=== PATIENT | male | born 1955 ===

== ENCOUNTER 2021-07-07 12:05 | Outpatient (REF) | payer MEDICARE, SELFPAY ==
[2021-07-07 13:42] LABS: Appearance Urine CLEAR; Color Urine YELLOW; Glucose Urine UA NEG (NEG); Leukocyte Esterase Urine NEG (NEG); Nitrite Urine NEG (NEG); PH 5.5 (5.0-8.0); Specific Gravity - Urine >= 1.030 (1.005-1.025); Urine Blood NEG (NEG); Urine Ketones NEG (NEG); Urine Protein NEG (NEG-TRACE)
[2021-07-07 13:45] LABS: Hematocrit 43.7 % (42.0-52.0); Hemoglobin 14.4 g/dl (14.0-18.0); Mean Corpuscular Hemoglobin 30.5 pg (27.0-33.0); Mean Corpuscular Volume 92.6 fL (80.0-98.0); Mean Platelet Volume 11.1 fL (9.4-12.4); Platelet Count 175 X10*3/uL (160-400); Red Blood Count 4.72 X10*6/uL (4.60-5.80); Red Cell Distribution Width 13.2 % (11.0-16.0)
[2021-07-07 13:55] LABS: RBC Urine 0 /HPF (0); Squamous Epithelial Cell Urine 1+ /LPF; WBC Urine 0-2 /HPF (0-4)
[2021-07-07 14:01] LABS: Alanine Aminotransferase 32 U/L (0-40); Albumin Level 4.4 g/dL (3.5-5.0); Alkaline Phosphatase 60 U/L (39-117); Anion Gap 11 (12-20); Aspartate Amino Transferase 25 U/L (5-37); Bilirubin Total 0.6 mg/dL (0.0-1.0); Blood Urea Nitrogen 11 mg/dL (9-16); Calcium 9.5 mg/dL (8.4-10.2); Carbon Dioxide 27 mmol/L (22-29); Chloride 105 mmol/L (96-108); Cholesterol 210 mg/dL; Estimated Glomerular Filt Rate > 60; Glucose Fasting 93 mg/dL (60-99); HDL Cholesterol 41 mg/dL; LDL Cholesterol Calculated 135 mg/dl; Potassium 4.4 mmol/L (3.3-5.1); Sodium 139 mmol/L (135-145); Total Protein 7.3 g/dL (6.5-8.0); Triglycerides 172 mg/dL
[2021-07-07 14:20] LABS: TSH reflex Free T4 1.41 uIU/mL (0.32-4.0)
== END 2021-07-07 12:06 | disposition home or self-care (01) ==
LOC: HO.HMGCLDS 12:05
PROVIDERS: PCP Internal Medicine; Visit Provider Internal Medicine
DX: E66.3 Overweight (principal); E78.5 Hyperlipidemia, unspecified; N40.0 Benign prostatic hyperplasia without lower urinary tract symptoms
CPT/HCPCS: 36415; 80053; 80061; 81001; 84443; 85027

== ENCOUNTER 2021-08-19 13:13 | Outpatient (REF) | payer MEDICARE, SELFPAY ==
[2021-08-19 14:24] LABS: Anion Gap 12 (12-20); Blood Urea Nitrogen 12 mg/dL (9-16); Calcium 9.6 mg/dL (8.4-10.2); Carbon Dioxide 27 mmol/L (22-29); Chloride 106 mmol/L (96-108); Cholesterol 194 mg/dL; Estimated Glomerular Filt Rate > 60; Glucose Random 90 mg/dL (60-115); HDL Cholesterol 36 mg/dL; LDL Cholesterol Calculated 96 mg/dl; Potassium 4.5 mmol/L (3.3-5.1); Sodium 140 mmol/L (135-145); Triglycerides 314 mg/dL
== END 2021-08-19 13:14 | disposition home or self-care (01) ==
LOC: HO.HMGCLDS 13:13
PROVIDERS: Visit Provider Internal Medicine
DX: I10 Essential (primary) hypertension (principal); E78.5 Hyperlipidemia, unspecified
CPT/HCPCS: 36415; 80048; 80061

== ENCOUNTER 2021-12-20 13:29 | Outpatient (REF) | payer MEDICARE, SELFPAY ==
[2021-12-20 16:49] LABS: Alanine Aminotransferase 29 U/L (0-40); Albumin Level 4.4 g/dL (3.5-5.0); Alkaline Phosphatase 65 U/L (39-117); Anion Gap 15 (12-20); Aspartate Amino Transferase 26 U/L (5-37); Bilirubin Total 0.8 mg/dL (0.0-1.0); Blood Urea Nitrogen 16 mg/dL (9-16); Calcium 8.8 mg/dL (8.4-10.2); Carbon Dioxide 28 mmol/L (22-29); Chloride 101 mmol/L (96-108); Estimated Glomerular Filt Rate > 60; Glucose Fasting 92 mg/dL (60-99); Potassium 4.6 mmol/L (3.3-5.1); Sodium 139 mmol/L (135-145); Total Protein 7.4 g/dL (6.5-8.0)
== END 2021-12-20 13:30 | disposition home or self-care (01) ==
LOC: HO.HMGCLDS 13:29
PROVIDERS: PCP Internal Medicine; Visit Provider Internal Medicine
DX: E78.5 Hyperlipidemia, unspecified (principal); I10 Essential (primary) hypertension
CPT/HCPCS: 36415; 80053

== ENCOUNTER 2022-06-09 09:30 | Outpatient (REF) | payer MEDICARE, SELFPAY ==
[2022-06-09 11:55] LABS: Alanine Aminotransferase 33 U/L (0-40); Albumin Level 4.3 g/dL (3.5-5.0); Alkaline Phosphatase 53 U/L (39-117); Anion Gap 14 (12-20); Aspartate Amino Transferase 27 U/L (5-37); Bilirubin Total 0.9 mg/dL (0.0-1.0); Blood Urea Nitrogen 12 mg/dL (9-16); Carbon Dioxide 26 mmol/L (22-29); Chloride 104 mmol/L (96-108); Cholesterol 164 mg/dL; Estimated Glomerular Filt Rate > 60; Glucose Fasting 98 mg/dL (60-99); HDL Cholesterol 38 mg/dL; LDL Cholesterol Calculated 108 mg/dl; Potassium 4.6 mmol/L (3.3-5.1); Sodium 139 mmol/L (135-145); Total Protein 6.9 g/dL (6.5-8.0); Triglycerides 93 mg/dL
[2022-06-09 12:04] LABS: Estimated Average Glucose 114 mg/dL; Hemoglobin A1c % 5.6 %
== END 2022-06-09 09:31 | disposition home or self-care (01) ==
LOC: HO.HMGCLDS 09:30
PROVIDERS: PCP Internal Medicine; Visit Provider Internal Medicine
DX: Z00.00 Encounter for general adult medical examination without abnormal findings (principal); I10 Essential (primary) hypertension; E78.5 Hyperlipidemia, unspecified
CPT/HCPCS: 36415; 80053; 80061; 83036

== ENCOUNTER 2022-06-10 15:01 | Outpatient (REF) | payer MEDICARE, SELFPAY ==
[2022-06-14 03:05] LABS: Lyme Abs Screen <0.90 index
== END 2022-06-10 15:02 | disposition home or self-care (01) ==
LOC: HO.HMGCLDS 15:01
PROVIDERS: Visit Provider Internal Medicine
DX: T14.8XXA Other injury of unspecified body region, initial encounter (principal); W57.XXXA Bitten or stung by nonvenomous insect and other nonvenomous arthropods, initial encounter; Y93.9 Activity, unspecified; Y92.9 Unspecified place or not applicable; Y99.9 Unspecified external cause status
CPT/HCPCS: 36415; 86617; 86618

== ENCOUNTER 2022-12-14 11:06 | Outpatient (REF) | payer MEDICARE, SELFPAY ==
[2022-12-14 13:17] LABS: MANUAL DIFF FLAG NO
[2022-12-14 13:33] LABS: Estimated Average Glucose 105 mg/dL; Hemoglobin A1c % 5.3 % (<6.0)
[2022-12-14 13:38] LABS: Eosinophils Absolute Auto 0.1 X10*3/uL (0.0-0.4); Eosinophils Percent Auto 1.3 % (0-4); Hematocrit 42.6 % (42.0-52.0); Hemoglobin 14.4 g/dl (14.0-18.0); Imm Gran Abs Auto 0.02 X10*3/uL (0.00-0.03); Imm Gran Pct Auto 0.5 % (0.0-0.4); Lymphocytes Percent Auto 25.5 % (20-40); Mean Corpuscular HGB Conc 33.8 g/dl (31.0-36.0); Mean Corpuscular Hemoglobin 31.4 pg (27.0-33.0); Monocytes Absolute Auto 0.4 X10*3/uL (0.1-1.2); Monocytes Percent Auto 9.1 % (2-11); Neutrophils Absolute Auto 2.4 x10*3/uL (2.0-8.3); Neutrophils Percent Auto 62.6 % (45-73); Platelet Count 189 X10*3/uL (160-400); Red Blood Count 4.58 X10*6/uL (4.60-5.80); Red Cell Distribution Width 13.1 % (11.0-16.0); White Blood Count 3.8 X10*3/uL (4.8-10.8)
[2022-12-14 13:46] LABS: Alanine Aminotransferase 16 U/L (0-40); Albumin Level 4.4 g/dL (3.5-5.0); Alkaline Phosphatase 62 U/L (39-117); Anion Gap 12 (12-20); Aspartate Amino Transferase 20 U/L (5-37); Bilirubin Total 0.8 mg/dL (0.0-1.0); Blood Urea Nitrogen 14 mg/dL (9-16); Calcium 9.7 mg/dL (8.4-10.2); Carbon Dioxide 26 mmol/L (22-29); Chloride 107 mmol/L (96-108); Cholesterol 207 mg/dL (<200); Estimated Glomerular Filt Rate > 60; Glucose Fasting 98 mg/dL (60-99); HDL Cholesterol 45 mg/dL (>40); LDL Cholesterol Calculated 141 mg/dL (<100); Potassium 4.3 mmol/L (3.3-5.1); Sodium 141 mmol/L (135-145); Total Protein 7.4 g/dL (6.5-8.0); Triglycerides 107 mg/dL (<150)
== END 2022-12-14 11:07 | disposition home or self-care (01) ==
LOC: HO.HMGCLDS 11:06
PROVIDERS: PCP Internal Medicine; Visit Provider Internal Medicine
DX: Z00.00 Encounter for general adult medical examination without abnormal findings (principal); E78.5 Hyperlipidemia, unspecified; I10 Essential (primary) hypertension
CPT/HCPCS: 36415; 80053; 80061; 83036; 85025

== ENCOUNTER 2022-12-21 09:47 | Outpatient (AMB) | payer MEDICARE, SELFPAY ==
--- NOTE | 2022-12-21 09:50 | A.OFFPC_ITS ---
Vital Signs 12/21/22 09:52 Height 5 ft 11 in Weight 242 lb BMI 33.7 BP 122/66 Blood Pressure Location Lt brachial Position Sitting Pulse 64 Pulse Source Pulse Oximeter Pulse Oximetry (%) 98 Oxygen Delivery Method Room Air Intake Visit Reasons: 6m follow up HTN Intake Note: Pt is here today for 6 months follow up visit on HTN. Allergies meperidine [From Demerol] Allergy (Verified 12/21/22 09:54) it took a while to recover from it to wake up Medication List - Last Reconciled 12/21/22 by Maida Belcher MD apple cider vinegar 480 mg PO DAILY ascorbic acid (vitamin C) mg PO B gwqobtx-K-gsvzv acid-Zn 500-400-15 mg-mcg-mg tabs PO DAILY cholecalciferol (vitamin D3) 50 mcg PO DAILY dextrin (Clear Fiber) 2 tsp PO DAILY magnesium 500 mg PO DAILY melatonin 3 mg PO BEDTIME PRN olmesartan 20 mg PO DAILY selenium 200 mcg PO .every other day turmeric root extract 1,000 mg PO DAILY zinc 50 mg PO DAILY Tobacco use date assessed: 12/21/22 Dental Screening Dental Screen Date: 12/21/22 Did you have a dental visit in the last 12 months?: Yes Did you have a dental problem in the last 6 months where you did not have access to dental care?: No Was dental information given to patient?: Patient has dentist HPI 6m follow up HTN HPI Details Pt presents for f/u HTN, stable on Olmesartan. Pt was dxd with low grade prostate ca and f/u [facility] urology for watchful waiting. [facility] Medical History (Updated 12/21/22 @ 11:16 by Maida Belcher MD) Hyperlipidemia Annual physical exam HTN (hypertension) BPH (benign prostatic hyperplasia) Overweight Surgical History (Updated 12/21/22 @ 10:48 by Maida Belcher MD) H/O colonoscopy Family History Mother AD (Alzheimer's disease) Hypertension Father Colorectal cancer Prostate cancer Social History Household Members Other:: , bookeeping business, Housing: House Patient Tobacco Use Status: Former Tobacco user ( ) e-Cigarette/Vaping Use: Never Used Current occupational status: employed Cognitive needs: No Hearing needs: No Vision needs: Yes Questionnaire PHQ-9 Over the last 2 weeks, how often have you been bothered by any of the following problems? 1. Little interest or pleasure in doing things: not at all 2. Feeling down, depressed, or hopeless: not at all 3. Trouble falling or staying asleep, or sleeping too much: not at all 4. Feeling tired or having little energy: nearly every day 5. Poor appetite or overeating: not at all 6. Feeling bad about yourself - or that you are a failure or have let yourself or your family down: not at all 7. Trouble concentrating on things, such as reading the newspaper or watching television: not at all 8. Moving or speaking so slowly that other people could have noticed. Or the opposite - being so fidgety or restless that you have been moving around a lot more than usual: not at all 9. Thoughts that you would be better off or of hurting yourself in some way: not at all Total score: 3 Depression Screening Interpretation: Negative Source: Developed by Drs. Mani Rosario, Rosana Bowman, Guru Veras and colleagues, with an educational gucci from [employer]. Thrive Questionnaire Date Thrive assessed: 12/21/22 I am a: Patient What is your living situation today?: I have a steady place to live Within the past 12 months, did the food you bought not last and you didn't have the money to get more?: Never true Within the past 12 months, did you worry whether your food would run out before you got money to buy more?: Never true Do you have trouble paying for medicines?: No Do you have trouble getting transportation to medical appointments?: No Do you have trouble paying your heating and electricity bill?: No Do you have trouble taking care of your child, family member or friend?: No Do you have trouble with day-to-day activities such as bathing, preparing meals, shopping, managing finances, etc.?: No Are you currently unemployed and looking for a job?: No Are you interested in more education?: No Please select the resources that you would like help with: None Currently or been in a relationship where the following occur: no concerns reported JUAN-7 AMB Questionnaire JUAN-7 Date JUAN - 7 assessed: 12/21/22 Feeling nervous, anxious, or on edge: 0 = Not at all Not being able to stop or control worryin = Not at all Worrying too much about different things: 0 = Not at all Trouble relaxin = Not at all Being so restless that it is hard to sit still: 0 = Not at all Becoming easily annoyed or irritable: 0 = Not at all Feeling afraid as if something awful might happen: 0 = Not at all Total JUAN-7 score (0-4 normal; 5-9 mild; 10-14 moderate; 15-21 severe): 0 Source: Developed by Drs. Mani Rosario, Rosana Bowman, Guru Veras and colleagues, with an educational gucci from [employer]. Review of Systems Const All systems reviewed & are unremarkable except as noted in HPI and below Reports no additional complaints Eyes Reports no additional complaints ENT Reports no additional complaints Card Reports no additional complaints Resp Reports no additional complaints GI Reports no additional complaints Reports no additional complaints Physical exam (Primary Care) Vital Signs: Last Vital Signs Pulse 64 12/21/22 09:52 BP 122/66 12/21/22 09:52 Pulse Ox 98 12/21/22 09:52 Oxygen Delivery Method Room Air 12/21/22 09:52 BMI result Body Mass Index 33.7 Tobacco/Smoking Status: Tobacco use Status Tobacco use date assessed 12/21/22 12/21/22 09:57 Patient Tobacco Use Status Former Tobacco user ( ) 12/21/22 09:51 e-Cigarette/Vaping Use Never Used 12/21/22 09:51 PHQ-9: PHQ-9 Score PHQ-9: Total score 3 12/21/22 10:47 Depression Screening Interpretation: Negative Thrive Assessment: Date of Thrive Assessment Date Thrive assessed 12/21/22 12/21/22 09:57 Currently or been in a relationship where the following occur: no concerns reported Const General: no acute distress HENMT Head: Yes normal to inspection Ears: hearing grossly normal bilaterally Face and sinus: Yes normal facial exam Mouth: Normal oral and palatal mucosa present Throat: Yes posterior oropharynx normal Eyes General: appearance normal, both eyes and all related structures Neck Neck: Yes no lymphadenopathy and Yes supple Resp Effort & Inspection: normal respiratory effort Auscultation: clear to auscultation bilaterally Cardio Rhythm: regular rhythm Heart sounds: S1 normal heart sound present and S2 normal heart sound present GI Inspection: Yes normal to inspection Palpation (GI): Soft to palpation Percussion: Yes normal to percussion Auscultation: normal bowel sounds Assessment and Plan Assessment & Plan (1) Annual physical exam: Code(s): Z00.00 - Encounter for general adult medical examination without abnormal findings Plan: A WELL BALANCED DIET REGULAR EXERCISE AND WEIGHT LOSS DISCUSSED WITH THE PATIENT. (2) HTN (hypertension): Code(s): I10 - Essential (primary) hypertension Plan: Continue olmesartan (3) Prostate cancer: Comment: low grade, f/u [facility] [place] , WATCHFUL WAITING Code(s): C61 - Malignant neoplasm of prostate Plan: Follow-up with urology (4) Hyperlipidemia: Code(s): E78.5 - Hyperlipidemia, unspecified Plan: Low-cholesterol diet including avoiding red meat and coconut oil discussed with the patient recheck lipid profile in 3 months Orders: Orders Vitamin B12 Today I10 - Essential (primary) hypertension, Z00.00 - Encounter for general adult medical examination without abnormal findings IRON PROFILE Today I10 - Essential (primary) hypertension, Z00.00 - Encounter for general adult medical examination without abnormal findings Complete Blood Count Auto Diff 3 Months E78.5 - Hyperlipidemia, unspecified, Z00.00 - Encounter for general adult medical examination without abnormal findings Lipid Panel 3 Months E78.5 - Hyperlipidemia, unspecified, Z00.00 - Encounter for general adult medical examination without abnormal findings Coding Level of Care Code Est Pt Level 4 (10658) Diagnoses Annual physical exam Z00.00 HTN (hypertension) I10 Prostate cancer C61 Hyperlipidemia E78.5
[2022-12-21 09:52] VITALS: BP 122/66; PULSE 64; O2SAT 98; BMI 33.7
== END 2022-12-21 11:17 | disposition home or self-care (01) ==
PROVIDERS: Visit Provider Internal Medicine
DX: I10 Essential (primary) hypertension (principal); C61 Malignant neoplasm of prostate; E78.5 Hyperlipidemia, unspecified
CPT/HCPCS: 99214

== ENCOUNTER 2022-12-21 10:51 | Outpatient (REF) | payer MEDICARE, SELFPAY ==
[2022-12-21 13:39] LABS: Iron 139 mcg/dL (45-160); Percent Iron Saturation 48 % (15-50); Total Iron Binding Capacity 289 mcg/dL (228-428); Unsaturated Iron Binding 150 ug/dL
[2022-12-21 14:07] LABS: Vitamin B12 446 pg/mL (200-900)
== END 2022-12-21 10:52 | disposition home or self-care (01) ==
LOC: HO.HMGCLDS 10:51
PROVIDERS: PCP Internal Medicine; Visit Provider Internal Medicine
DX: Z00.00 Encounter for general adult medical examination without abnormal findings (principal); I10 Essential (primary) hypertension
CPT/HCPCS: 36415; 82607; 83540

== ENCOUNTER 2023-05-05 09:52 | Outpatient (AMB) | payer MEDICARE, SELFPAY ==
--- NOTE | 2023-05-05 09:54 | A.OFFPC_ITS ---
Vital Signs 05/05/23 09:56 Height 5 ft 11 in Weight 244 lb BMI 34.0 BP 128/70 Blood Pressure Location Lt brachial Position Sitting Pulse 76 Pulse Source Pulse Oximeter Pulse Oximetry (%) 98 Oxygen Delivery Method Room Air Intake Visit Reasons: Follow up discuss referral ENT? Intake Note: Pt is here today for a folow up visit to discuss referral to ENT. Allergies meperidine [From Demerol] Allergy (Verified 05/05/23 09:58) it took a while to recover from it to wake up Medication List - Last Reconciled 05/05/23 by Maida Belcher MD apple cider vinegar 480 mg PO DAILY ascorbic acid (vitamin C) mg PO B igbmxrs-A-yfumu acid-Zn 500-400-15 mg-mcg-mg tabs PO DAILY cholecalciferol (vitamin D3) 50 mcg PO DAILY dextrin (Clear Fiber) 2 tsp PO DAILY magnesium 500 mg PO DAILY melatonin 3 mg PO BEDTIME PRN olmesartan 20 mg PO DAILY selenium 200 mcg PO .every other day turmeric root extract 1,000 mg PO DAILY zinc 50 mg PO DAILY Tobacco use date assessed: 05/05/23 Fall risk assessment: 2 + Falls in past year Last assessed Fall Risk: 05/05/23 Dental Screening Dental Screen Date: 05/05/23 Did you have a dental visit in the last 12 months?: Yes Did you have a dental problem in the last 6 months where you did not have access to dental care?: No Was dental information given to patient?: Patient has dentist HPI Follow up discuss referral ENT? HPI Details Patient presents with a concern of right submandibular mass felt by dental hygienist during his routine cleaning. Patient denies tooth infection, sore throat earache fever chills. [facility] Medical History (Updated 05/05/23 @ 10:53 by Maida Belcher MD) Hyperlipidemia Annual physical exam HTN (hypertension) BPH (benign prostatic hyperplasia) Overweight Surgical History (Updated 12/21/22 @ 10:48 by Maida Belcher MD) H/O colonoscopy Family History Mother AD (Alzheimer's disease) Hypertension Father Colorectal cancer Prostate cancer Social History Household Members Other:: , bookeeping business, Housing: House Patient Tobacco Use Status: Former Tobacco user ( ) e-Cigarette/Vaping Use: Never Used Current occupational status: employed Cognitive needs: No Hearing needs: No Vision needs: Yes Questionnaire Thrive Questionnaire Date Thrive assessed: 12/21/22 AUDIT C Alcohol Use Questionnaire (AUDIT-C) 1. How often do you have a drink containing alcohol?: Never 3. How often do you have six or more drinks on one occasion?: Never Total Score: 0 JUAN-7 AMB Questionnaire JUAN-7 Date JUAN - 7 assessed: 12/21/22 Feeling nervous, anxious, or on edge: 1 = Several days Not being able to stop or control worryin = Not at all Worrying too much about different things: 1 = Several days Trouble relaxin = Several days Being so restless that it is hard to sit still: 0 = Not at all Becoming easily annoyed or irritable: 0 = Not at all Feeling afraid as if something awful might happen: 1 = Several days Total JUAN-7 score (0-4 normal; 5-9 mild; 10-14 moderate; 15-21 severe): 4 Source: Developed by Drs. Mani Rosario, Rosana Bowman, Guru Veras and colleagues, with an educational gucci from [employer]. Review of Systems Const All systems reviewed & are unremarkable except as noted in HPI and below Reports no additional complaints Eyes Reports no additional complaints ENT Reports no additional complaints Card Reports no additional complaints Resp Reports no additional complaints GI Reports no additional complaints Reports no additional complaints Physical exam (Primary Care) Vital Signs: Last Vital Signs Pulse 76 05/05/23 09:56 BP 128/70 05/05/23 09:56 Pulse Ox 98 05/05/23 09:56 Oxygen Delivery Method Room Air 05/05/23 09:56 BMI result Body Mass Index 34.0 Tobacco/Smoking Status: Tobacco use Status Tobacco use date assessed 05/05/23 05/05/23 10:01 Patient Tobacco Use Status Former Tobacco user ( ) 05/05/23 09:54 e-Cigarette/Vaping Use Never Used 05/05/23 09:54 Thrive Assessment: Date of Thrive Assessment Date Thrive assessed 12/21/22 05/05/23 09:54 Const General: no acute distress HENMT Head: Yes normal to inspection Ears: hearing grossly normal bilaterally and TM's normal bilaterally Face and sinus: Yes normal facial exam Throat: Yes posterior oropharynx normal Neck Other: Right submandibular 1 cm mobile nontender rubbery mass Neck: Yes supple Thyroid: Thyroid normal Resp Effort & Inspection: normal respiratory effort Auscultation: clear to auscultation bilaterally Cardio Rhythm: regular rhythm Heart sounds: S1 normal heart sound present and S2 normal heart sound present Assessment and Plan Assessment & Plan (1) Mass in neck: Comment: R submandibular Code(s): R22.1 - Localized swelling, mass and lump, neck Plan: Obtain soft tissue ultrasound to evaluate Orders: Orders US soft tiss head and/or neck Today R22.1 - Localized swelling, mass and lump, neck Coding Level of Care Code Est Pt Level 3 (46463) Diagnoses Mass in neck R22.1
[2023-05-05 09:56] VITALS: BP 128/70; PULSE 76; O2SAT 98; BMI 34.0
== END 2023-05-05 11:01 | disposition home or self-care (01) ==
PROVIDERS: PCP Internal Medicine; Visit Provider Internal Medicine
DX: R22.1 Localized swelling, mass and lump, neck (principal)
CPT/HCPCS: 99213

== ENCOUNTER 2023-05-05 11:41 | Outpatient (REF) | payer MEDICARE, SELFPAY ==
--- NOTE | ~2023-05-05 | US_ITS ---
EXAMINATION: US SOFT TISSUE NECK CLINICAL INFORMATION: Right submandibular lump COMPARISON: None available. TECHNIQUE: Limited ultrasound imaging to the right submandibular area is performed. FINDINGS: In the right submandibular area. There are small lymph nodes visualized. Described as follows, 1. 1.1 x 0.57 x 1.1 cm lymph node with central echogenic medulla, normal. 2. 0.91 x /0.60 cm with central echogenic medulla and normal cortex, normal. In the left submandibular area in the lymph nodes, 1. 0.5-0 0.61 x 0.77 cm and echogenic medulla and normal hypoechoic cortex, normal. 2. 0.48 x 0.50 x 0.45 cm lymph node with no fatty hilum, nonvascular. Abnormal appearing but less than a centimeter. US/US soft tiss head and/or neck IMPRESSION: Bilateral neck lymph nodes the right submental lymph nodes are normal. There are left submental lymph nodes as well. The second submental lymph node has no fatty hilum but avascular.
== END 2023-05-05 11:42 | disposition home or self-care (01) ==
LOC: HO.HMGCX 11:41
PROVIDERS: PCP Internal Medicine; Visit Provider Internal Medicine
DX: R22.1 Localized swelling, mass and lump, neck (principal)
CPT/HCPCS: 76536

== ENCOUNTER 2023-05-30 13:11 | Outpatient (REF) | payer MEDICARE, SELFPAY ==
[2023-05-30 16:08] LABS: MANUAL DIFF FLAG NO
[2023-05-30 16:22] LABS: Basophils Percent Auto 0.8 % (0-2); Eosinophils Absolute Auto 0.1 X10*3/uL (0.0-0.4); Eosinophils Percent Auto 1.8 % (0-4); Hematocrit 39.7 % (42.0-52.0); Hemoglobin 13.2 g/dl (14.0-18.0); Imm Gran Abs Auto 0.01 X10*3/uL (0.00-0.03); Imm Gran Pct Auto 0.2 % (0.0-0.4); Lymphocytes Absolute Auto 1.5 X10*3/uL (1.2-4.9); Lymphocytes Percent Auto 28.3 % (20-40); Mean Corpuscular HGB Conc 33.2 g/dl (31.0-36.0); Mean Corpuscular Hemoglobin 31.4 pg (27.0-33.0); Mean Corpuscular Volume 94.5 fL (80.0-98.0); Mean Platelet Volume 11.7 fL (9.4-12.4); Monocytes Absolute Auto 0.4 X10*3/uL (0.1-1.2); Neutrophils Absolute Auto 3.1 x10*3/uL (2.0-8.3); Neutrophils Percent Auto 60.9 % (45-73); Platelet Count 182 X10*3/uL (160-400); Red Cell Distribution Width 12.6 % (11.0-16.0); White Blood Count 5.1 X10*3/uL (4.8-10.8)
[2023-05-30 16:31] LABS: Cholesterol 147 mg/dL (<200); HDL Cholesterol 39 mg/dL (>40); LDL Cholesterol Calculated 85 mg/dL (<100); Triglycerides 119 mg/dL (<150)
== END 2023-05-30 13:12 | disposition home or self-care (01) ==
LOC: HO.HMGCLDS 13:11
PROVIDERS: PCP Internal Medicine; Visit Provider Internal Medicine
DX: Z00.00 Encounter for general adult medical examination without abnormal findings (principal); E78.5 Hyperlipidemia, unspecified
CPT/HCPCS: 36415; 80061; 85025

== ENCOUNTER 2023-06-21 09:40 | Outpatient (AMB) | payer MEDICARE, SELFPAY ==
--- NOTE | 2023-06-21 09:42 | A.OFFPC_ITS ---
Vital Signs 06/21/23 09:51 Height 5 ft 11 in Weight 240 lb BMI 33.5 BP 124/74 Blood Pressure Location Lt brachial Position Sitting Pulse 73 Pulse Source Pulse Oximeter Pulse Oximetry (%) 97 Oxygen Delivery Method Room Air Intake Visit Reasons: 6 month follow up HTN Intake Note: Pt is here today for 6 months follow up visit. Allergies meperidine [From Demerol] Allergy (Verified 06/21/23 09:53) it took a while to recover from it to wake up Medication List - Last Reconciled 06/21/23 by Maida Belcher MD apple cider vinegar 480 mg PO DAILY ascorbic acid (vitamin C) mg PO B fiptpjs-N-iydxe acid-Zn 500-400-15 mg-mcg-mg tabs PO DAILY cholecalciferol (vitamin D3) 50 mcg PO DAILY dextrin (Clear Fiber) 2 tsp PO DAILY magnesium 500 mg PO DAILY melatonin 3 mg PO BEDTIME PRN olmesartan 20 mg PO DAILY selenium 200 mcg PO .every other day turmeric root extract 1,000 mg PO DAILY zinc 50 mg PO DAILY Tobacco use date assessed: 05/05/23 Fall risk assessment: 1 Fall in past year Last assessed Fall Risk: 06/21/23 HPI 6 month follow up HTN HPI Details Patient presents for the follow-up on hypertension controlled on current medication. He has been following low-cholesterol diet for hyperlipidemia [facility] Medical History Hyperlipidemia Annual physical exam HTN (hypertension) BPH (benign prostatic hyperplasia) Overweight Surgical History (Updated 06/21/23 @ 10:31 by Maida Belcher MD) H/O colonoscopy Family History Mother AD (Alzheimer's disease) Hypertension Father Colorectal cancer Prostate cancer Social History Household Members Other:: , bookeeping business, Housing: House Patient Tobacco Use Status: Former Tobacco user ( ) e-Cigarette/Vaping Use: Never Used Current occupational status: employed Cognitive needs: No Hearing needs: No Vision needs: Yes Questionnaire Thrive Questionnaire Date Thrive assessed: 12/21/22 JUAN-7 AMB Questionnaire JUAN-7 Date JUAN - 7 assessed: 12/21/22 Source: Developed by Drs. Mani Rosario, Rosana Bowman, Guru Veras and colleagues, with an educational gucci from [employer]. Review of Systems Const All systems reviewed & are unremarkable except as noted in HPI and below Reports no additional complaints Eyes Reports no additional complaints ENT Reports no additional complaints Card Reports no additional complaints Resp Reports no additional complaints GI Reports no additional complaints Physical exam (Primary Care) Vital Signs: Last Vital Signs Pulse 73 06/21/23 09:51 BP 124/74 06/21/23 09:51 Pulse Ox 97 06/21/23 09:51 Oxygen Delivery Method Room Air 06/21/23 09:51 BMI result Body Mass Index 33.5 Tobacco/Smoking Status: Tobacco use Status Tobacco use date assessed 05/05/23 06/21/23 09:43 Patient Tobacco Use Status Former Tobacco user ( ) 06/21/23 09:43 e-Cigarette/Vaping Use Never Used 06/21/23 09:43 Thrive Assessment: Date of Thrive Assessment Date Thrive assessed 12/21/22 06/21/23 09:43 Const General: no acute distress HENMT Head: Yes normal to inspection Mouth: Normal oral and palatal mucosa present Resp Effort & Inspection: normal respiratory effort Auscultation: clear to auscultation bilaterally Cardio Rhythm: regular rhythm Heart sounds: S1 normal heart sound present and S2 normal heart sound present GI Inspection: Yes normal to inspection Palpation (GI): Soft to palpation Percussion: Yes normal to percussion Auscultation: normal bowel sounds Assessment and Plan Assessment & Plan (1) Mass in neck: Comment: R submandibular, ?abnormal finding on neck US 05/07/23 repeat Code(s): R22.1 - Localized swelling, mass and lump, neck Plan: Patient is concerned about report of a neck ultrasound questioning abnormal avascular lesion. Repeated ultrasound will be obtained to evaluate. If the concern persist CT of the neck will be obtained and patient will be referred to ENT (2) Fracture of nose, closed: Comment: Fracture the right nasal bone after a fall 05/20/23 Code(s): S02.2XXA - Fracture of nasal bones, initial encounter for closed fracture Plan: Referred to ENT , patient's request (3) Prostate cancer: Comment: low grade, f/u [facility] , [facility]ATCHFUL WAITING Code(s): C61 - Malignant neoplasm of prostate Plan: Follow-up with urology (4) HTN (hypertension): Code(s): I10 - Essential (primary) hypertension Plan: Continue olmesartan (5) H/O colonoscopy: Comment: 2 polyps, last colonoscopy 06/30, 1 polyp tubular adenoma recheck in [address] Love Code(s): Z98.890 - Other specified postprocedural states (6) Hyperglycemia: Code(s): R73.9 - Hyperglycemia, unspecified Plan: ADA diet increase physical activity discussed with the patient follow-up in 6 months Orders: Orders Hemoglobin A1c 6 Months R73.9 - Hyperglycemia, unspecified US soft tiss head and/or neck Today R22.1 - Localized swelling, mass and lump, neck Comprehensive [place]. Panel Fast 6 Months E78.5 - Hyperlipidemia, unspecified, I10 - Essential (primary) hypertension, Z98.890 - Other specified postprocedural states Lipid Panel 6 Months E78.5 - Hyperlipidemia, unspecified, I10 - Essential (primary) hypertension, Z98.890 - Other specified postprocedural states Complete Blood Count Auto Diff 6 Months E78.5 - Hyperlipidemia, unspecified, I10 - Essential (primary) hypertension, Z98.890 - Other specified postprocedural states Vitamin B12 and Folate 6 Months E78.5 - Hyperlipidemia, unspecified, I10 - Essential (primary) hypertension, Z98.890 - Other specified postprocedural states IRON PROFILE 6 Months E78.5 - Hyperlipidemia, unspecified, I10 - Essential (primary) hypertension, Z98.890 - Other specified postprocedural states Immunofixation Pnl, Serum 6 Months E78.5 - Hyperlipidemia, unspecified, I10 - Essential (primary) hypertension, Z98.890 - Other specified postprocedural states Referrals Ear/Nose/Throat Referral R22.1 - Localized swelling, mass and lump, neck, S02.2XXA - Fracture of nasal bones, initial encounter for closed fracture Coding Level of Care Code Est Pt Level 4 (57165) Diagnoses Mass in neck R22.1 Fracture of nose, closed S02.2XXA Prostate cancer C61 HTN (hypertension) I10 H/O colonoscopy Z98.890 Hyperglycemia R73.9
[2023-06-21 09:51] VITALS: BP 124/74; PULSE 73; O2SAT 97; BMI 33.5
== END 2023-06-21 10:46 | disposition home or self-care (01) ==
PROVIDERS: PCP Internal Medicine; Visit Provider Internal Medicine
DX: R22.1 Localized swelling, mass and lump, neck (principal); S02.2XXA Fracture of nasal bones, initial encounter for closed fracture; C61 Malignant neoplasm of prostate; I10 Essential (primary) hypertension; Z98.890 Other specified postprocedural states; R73.9 Hyperglycemia, unspecified
CPT/HCPCS: 99214

== ENCOUNTER 2023-12-13 13:32 | Outpatient (REF) | payer MEDICARE, SELFPAY ==
[2023-12-13 16:18] LABS: MANUAL DIFF FLAG NO
[2023-12-13 16:26] LABS: Basophils Percent Auto 0.8 % (0-2); Eosinophils Absolute Auto 0.1 X10*3/uL (0.0-0.4); Eosinophils Percent Auto 1.8 % (0-4); Hematocrit 41.1 % (42.0-52.0); Hemoglobin 13.7 g/dl (14.0-18.0); Imm Gran Abs Auto 0.01 X10*3/uL (0.00-0.03); Imm Gran Pct Auto 0.2 % (0.0-0.4); Lymphocytes Absolute Auto 1.5 X10*3/uL (1.2-4.9); Lymphocytes Percent Auto 28.9 % (20-40); Mean Corpuscular HGB Conc 33.3 g/dl (31.0-36.0); Mean Corpuscular Hemoglobin 31.4 pg (27.0-33.0); Mean Corpuscular Volume 94.1 fL (80.0-98.0); Mean Platelet Volume 12.1 fL (9.4-12.4); Monocytes Absolute Auto 0.4 X10*3/uL (0.1-1.2); Monocytes Percent Auto 8.3 % (2-11); Neutrophils Absolute Auto 3.1 x10*3/uL (2.0-8.3); Platelet Count 153 X10*3/uL (160-400); Red Blood Count 4.37 X10*6/uL (4.60-5.80); Red Cell Distribution Width 12.5 % (11.0-16.0); White Blood Count 5.1 X10*3/uL (4.8-10.8)
[2023-12-13 16:31] LABS: Estimated Average Glucose 108 mg/dL; Hemoglobin A1c % 5.4 % (<6.0)
[2023-12-13 16:44] LABS: Alanine Aminotransferase 20 U/L (0-40); Albumin Level 4.3 g/dL (3.5-5.0); Alkaline Phosphatase 62 U/L (39-117); Anion Gap 14 (12-20); Aspartate Amino Transferase 19 U/L (5-37); Bilirubin Total 0.7 mg/dL (0.0-1.0); Blood Urea Nitrogen 18 mg/dL (9-16); Calcium 9.6 mg/dL (8.4-10.2); Carbon Dioxide 25 mmol/L (22-29); Chloride 105 mmol/L (96-108); Cholesterol 175 mg/dL (<200); Estimated Glomerular Filt Rate > 60; Glucose Fasting 94 mg/dL (60-99); HDL Cholesterol 42 mg/dL (>40); Iron 100 mcg/dL (45-160); LDL Cholesterol Calculated 116 mg/dL (<100); Percent Iron Saturation 36 % (15-50); Potassium 4.3 mmol/L (3.3-5.1); Sodium 140 mmol/L (135-145); Total Iron Binding Capacity 280 mcg/dL (228-428); Total Protein 7.3 g/dL (6.5-8.0); Triglycerides 86 mg/dL (<150); Unsaturated Iron Binding 180 ug/dL
[2023-12-13 17:11] LABS: Folate 16.5 ng/mL (> or = 4.0); Vitamin B12 518 pg/mL (200-900)
[2023-12-18 17:18] LABS: IgA 275 mg/dL (70-320); IgG 1057 mg/dL (600-1540); IgM 73 mg/dL (50-300)
== END 2023-12-13 13:33 | disposition home or self-care (01) ==
LOC: HO.HMGCLDS 13:32
PROVIDERS: PCP Internal Medicine; Visit Provider Internal Medicine
DX: E78.5 Hyperlipidemia, unspecified (principal); I10 Essential (primary) hypertension; R73.9 Hyperglycemia, unspecified; Z98.890 Other specified postprocedural states
CPT/HCPCS: 36415; 80053; 80061; 82607; 82746; 82784; 83036; 83540; 85025; 86334

== ENCOUNTER 2023-12-19 11:13 | Outpatient (AMB) | payer MEDICARE, SELFPAY ==
[2023-12-19 11:27] VITALS: BP 110/64; PULSE 64; O2SAT 97; BMI 33.3
--- NOTE | 2023-12-19 11:27 | AM.OFFVISMDC ---
Intake Vital Signs 12/19/23 11:27 Height 5 ft 11 in Weight 239 lb BMI 33.3 BP 110/64 Blood Pressure Location Rt brachial Position Sitting Pulse 64 Pulse Source Pulse Oximeter Pulse Oximetry (%) 97 Oxygen Delivery Method Room Air Intake Visit Reasons: SWV [id number] Allergies meperidine [From Demerol] Allergy (Verified 12/19/23 11:29) it took a while to recover from it to wake up Medication List - Last Reconciled 12/19/23 by Maida Belcher MD apple cider vinegar 480 mg PO DAILY ascorbic acid (vitamin C) mg PO B mkyzvig-B-npcbe acid-Zn 500-400-15 mg-mcg-mg tabs PO DAILY cholecalciferol (vitamin D3) 50 mcg PO DAILY dextrin (Clear Fiber) 2 tsp PO DAILY magnesium 500 mg PO DAILY melatonin 3 mg PO BEDTIME PRN olmesartan 20 mg PO DAILY omega-3 fatty acids 1,000 mg PO DAILY selenium 200 mcg PO .every other day turmeric root extract 1,000 mg PO DAILY zinc 50 mg PO DAILY HPI SWV [id number] HPI Details Initiated the conversation about Advanced Directives. Advanced Directives help? patients prepare for current and future decisions about their medical treatment? and place of care. Discussed with patient that it is a process where a patients? current condition and prognosis are reviewed, their wishes for information? regarding their illness are elicited, and likely medical dilemmas are presented? and options discussed. The form can be amended as needed, reviewed yearly and? make changes as needed IPPE/AWV ? year old presents? for her ? Annual? Wellness Visit, initial visit.? Medical / Social History Reviewed? Past Medical History ?Yes? . ? [place]? of Care / Care Team list updated ?Yes . ? Surgical/Hospitalization? History ?Yes . ? Current Medications? (including OTC and supplements) ?Yes . ? Family History ?Yes? . ? Tobacco? Control form ?Yes . ? AUDIT-C (Alcohol use) form? ?Yes . ? Illicit drug use in Social? History ?Yes . ? Current diagnosis of? depression? ?No ? Appropriate PHQ2/PHQ9? completed ?Yes . ? Data entered by ?Medical? Roll Off Driver and reviewed by provider ? Fall Risk ? Fall? History? Have you had any falls with? injury in the past year? ?No . ? Have you had two or more? falls in the past year? ?No . ? Fall Risk Assessment: ?No? falls in the past year . ? HRA filled out by? the patient, reviewed by Provider and scanned. ? IPPE/AWV ? Balance? [place]? ?Yes . ? Tandem? walk ?Yes . ? Walk and? Turn ?Yes . ? Rise from? sit to stand ?Yes . ?Vision? Corrective? lens ?Yes ? Vision? screen ? Up-to-date, has an appointment [] for vision? screening and glaucoma screening ?Hearing? Whisper? test ?pass .? Initiated the conversation about Advanced Directives. Advanced Directives help? patients prepare for current and future decisions about their medical treatment? and place of care. Discussed with patient that it is a process where a patients? current condition and prognosis are reviewed, their wishes for information? regarding their illness are elicited, and likely medical dilemmas are presented? and options discussed. The form can be amended as needed, reviewed yearly and? make changes as needed Written? Plan?Completed. See Patient? Documents. [facility] Medical History Hyperlipidemia Annual physical exam HTN (hypertension) BPH (benign prostatic hyperplasia) Overweight Surgical History (Updated 06/21/23 @ 10:31 by Maida Belcher MD) H/O colonoscopy Family History Mother AD (Alzheimer's disease) Hypertension Father Colorectal cancer Prostate cancer Social History Household Members Other:: , bookeeping business, Housing: House Patient Tobacco Use Status: Former Tobacco user ( ) e-Cigarette/Vaping Use: Never Used Current occupational status: employed Cognitive needs: No Hearing needs: No Vision needs: Yes Questionnaire Medicare Wellness Checkup [age] What gender do you identify with?: male During the past 4 weeks, how much have you been bothered by emotional problems such as feeling anxious, depressed, irritable, sad or downhearted, and blue?: slightly During the past 4 weeks, has your physical & emotional health limited your social activities with family, friends, neighbors, or groups?: not at all During the past 4 weeks, how much bodily pain have you generally had?: mild pain During the past 4 weeks, was someone available to help you if you needed & wanted help?: yes, as much as I wanted During the past 4 weeks, what was the hardest physical activity you could do for at least 2 minutes?: heavy Can you get to places out of walking distance without help? (For eg., can you travel alone on buses, taxis or drive your car?): Yes Can you go shopping for groceries or clothes without someone's help?: Yes Can you prepare your own meals?: Yes Can you do your housework without help?: Yes Because of any health problems, do you need the help of another person with your personal care needs such as eating, bathing, dressing or getting around the house?: No Can you handle your own money without help?: Yes During the past 4 weeks, how would you rate your health in general?: good During the past 4 weeks how have things been going for you?: good & bad parts about equal Are you having difficulties driving your car?: no Do you always fasten your seat belt when you are in a car?: yes, usually During past 4 weeks, have you been bothered by the following: never: Sexual problems?, Trouble eating well?, Teeth or denture problems? and Problems using the telephone?, seldom: Tiredness or fatigue? and sometimes: Falling or dizzy when standing up Have you fallen 2 or more times in the past year?: Yes Are you afraid of falling?: Yes Are you a smoker?: no During the past 4 weeks, how many drinks of wine, beer, or other alcoholic beverages did you have?: no alcohol at all Do you exercise for about 20 minutes 3 or more times a week?: yes, some of the time Have you been given information to help with the following?: no: Hazards in your house that might hurt you? and no: Keeping track of your medications? How often do you have trouble taking medicines the way you have been told to take them?: I always take medicine as prescribed How confident are you that you can control & manage most of your health problems?: somewhat confident What is your race?: White Mini Mental State Exam (MMSE) Orientation What is the (year) (season) (date) (day) (month)?: year, season, date, day and month Where are we (state) (county) (town or city) (hospital) (floor)?: state, county, town or city, hospital/clinic and floor Registration Name of 3 unrelated objects clearly and slowly, then ask patient to repeat all 3 of them. (1st repeat determines score. Make sure they can repeat all three): object 1, object 2 and object 3 Attention & Calculation (CHOOSE ONE) Spell WORLD backwards (DLROW): 5 letters Recall Ask patient to repeat the 3 items from question #3.: object 1, object 2 and object 3 Language Show patient a wristwatch & ask what it is. Repeat for pencil.: watch and pencil Ask the patient to repeat the phrase 'No ifs, ands, or buts' after you.: correct Ask the patient to 'take a piece of paper with their right hand' 'fold paper in half' 'place paper on floor': take paper in right hand, fold paper in half and place paper on floor Print the sentence 'CLOSE YOUR EYES' on a piece. If patient actually closes eyes then score.: followed written direction Give patient a blank piece of paper & ask to write a sentence. Score if it contains a noun & verb.: sentence contains subject and verb Score Score: 29 Activity of Daily Living Bathing - sponge bath, tub bath or shower: receives no assistance (gets in/out by self, if usual bathing means Dressing - getting clothes from closets & drawers, including inner/outer garments & fasteners.: gets clothes & gets completely dressed without help Toileting - going to the 'toilet room' for urine/bowel elimination & cleaning self/arranging clothes: goes to toilet room, cleans self, arranges clothes without help Transfer: moves in & out of bed and chair without help (may use support object) Continence: controls urination/bowel movements completely by self Feeding: feeds self without help Total Score: 0 Information obtained from: patient Using telephone: independent Traveling: independent Shopping: independent Preparing meals: independent Housework: independent Taking medicine: independent Managing money: independent PHQ-9 Over the last 2 weeks, how often have you been bothered by any of the following problems? 1. Little interest or pleasure in doing things: not at all 2. Feeling down, depressed, or hopeless: not at all 3. Trouble falling or staying asleep, or sleeping too much: not at all 4. Feeling tired or having little energy: nearly every day 5. Poor appetite or overeating: not at all 6. Feeling bad about yourself - or that you are a failure or have let yourself or your family down: not at all 7. Trouble concentrating on things, such as reading the newspaper or watching television: not at all 8. Moving or speaking so slowly that other people could have noticed. Or the opposite - being so fidgety or restless that you have been moving around a lot more than usual: not at all 9. Thoughts that you would be better off or of hurting yourself in some way: not at all Total score: 3 Depression Screening Interpretation: Negative Depression Screening Done: Yes 90643 - PHQ-9 Billing: Yes Source: Developed by Drs. Mani Rosario, Rosana Bowman, Guru Veras and colleagues, with an educational gucci from [employer]. Review of Systems Const All systems reviewed & are unremarkable except as noted in HPI and below Reports no additional complaints Eyes Reports no additional complaints ENT Reports no additional complaints Card Reports no additional complaints Resp Reports no additional complaints GI Reports no additional complaints Physical Exam Vital Signs: Last Vital Signs Pulse 64 12/19/23 11:27 BP 110/64 12/19/23 11:27 Pulse Ox 97 12/19/23 11:27 Oxygen Delivery Method Room Air 12/19/23 11:27 BMI result Body Mass Index 33.3 Const General: no acute distress HEENT Head: Yes normal to inspection Neck Neck: Yes no lymphadenopathy and Yes supple Resp Effort & Inspection: normal respiratory effort Auscultation: clear to auscultation bilaterally Cardio Rhythm: regular rhythm Heart sounds: S1 normal heart sound present and S2 normal heart sound present GI Inspection: Yes normal to inspection Palpation (GI): Soft to palpation Percussion: Yes normal to percussion Auscultation: normal bowel sounds Extrem General: Yes no clubbing, cyanosis or edema Assessment & Plan Assessment & Plan (1) Hyperlipidemia: Code(s): E78.5 - Hyperlipidemia, unspecified Plan: CONTINUE LOW-CHOLESTEROL DIET (2) Annual physical exam: Code(s): Z00.00 - Encounter for general adult medical examination without abnormal findings Plan: Well-balanced diet regular physical activity discussed with the patient. (3) HTN (hypertension): Code(s): I10 - Essential (primary) hypertension Plan: cont med (4) Prostate cancer: Comment: low grade, f/u [facility] [place] Code(s): C61 - Malignant neoplasm of prostate Plan: Follow-up with urology (5) Anemia: Code(s): D64.9 - Anemia, unspecified Plan: Monitor CBC Orders: Orders Complete Blood Count Man Dif 6 Months D64.9 - Anemia, unspecified Magnesium 6 Months I10 - Essential (primary) hypertension, R73.9 - Hyperglycemia, unspecified Comprehensive [place]. Panel Fast 6 Months I10 - Essential (primary) hypertension, R73.9 - Hyperglycemia, unspecified Quality Reporting (2019) Depression/Bipolar (159/160/161/177) PHQ-9: Total score: 3 Coding Level of Care Code Medicare Subsequent (G0439) Diagnoses Hyperlipidemia E78.5 Annual physical exam Z00.00 HTN (hypertension) I10 Prostate cancer C61 Anemia D64.9 CPT Codes Advance Care Planning - Advance Care Planning discussion: On file, no changes ([id number]) Advance Care Planning - Time spent: 1-15 minutes, on File ([id number]) Advance Care Planning Advance Care Planning discussion: On file, no changes Forms completed: Health Care Proxy Time spent: 1-15 minutes, on File
== END 2023-12-19 15:03 | disposition home or self-care (01) ==
PROVIDERS: PCP Internal Medicine; Visit Provider Internal Medicine
DX: E78.5 Hyperlipidemia, unspecified (principal); Z00.00 Encounter for general adult medical examination without abnormal findings; I10 Essential (primary) hypertension; C61 Malignant neoplasm of prostate; D64.9 Anemia, unspecified
CPT/HCPCS: 1123F; G0439

== ENCOUNTER 2024-02-19 10:46 | Outpatient (AMB) | payer MEDICARE, SELFPAY ==
[2024-02-19 11:07] VITALS: BP 124/66; PULSE 63; O2SAT 97; BMI 32.4
--- NOTE | 2024-02-19 11:07 | MHC.PC.OV ---
Vital Signs 02/19/24 11:07 Height 5 ft 11 in Weight 232 lb BMI 32.4 BP 124/66 Blood Pressure Location Rt brachial Position Sitting Pulse 63 Pulse Source Pulse Oximeter Pulse Oximetry (%) 97 Oxygen Delivery Method Room Air Intake Visit Reasons: 2m follow up BP Intake Note: Pt is here today for 2 months follow up visit on BP. Allergies meperidine [From Demerol] Allergy (Verified 02/19/24 11:25) it took a while to recover from it to wake up Medication List - Last Reconciled 02/19/24 by Maida Belcher MD apple cider vinegar 480 mg PO DAILY ascorbic acid (vitamin C) mg PO B knytphs-P-ttijh acid-Zn 500-400-15 mg-mcg-mg tabs PO DAILY cholecalciferol (vitamin D3) 50 mcg PO DAILY dextrin (Clear Fiber) 2 tsp PO DAILY magnesium 500 mg PO DAILY melatonin 3 mg PO BEDTIME PRN olmesartan 10 mg (2 x 5 mg) PO DAILY omega-3 fatty acids 1,000 mg PO DAILY selenium 200 mcg PO .every other day turmeric root extract 1,000 mg PO DAILY zinc 50 mg PO DAILY Tobacco use date assessed: 02/19/24 Dental Screening Dental Screen Date: 02/19/24 Did you have a dental visit in the last 12 months?: Yes Did you have a dental problem in the last 6 months where you did not have access to dental care?: No Was dental information given to patient?: Patient has dentist HPI 2m follow up BP HPI Details Pt presents for f/u HTN, stable on 1/2 a dose of of olmesartan. Patient has been trying to lose weight be more physically active. He had prostate biopsy which showed more advanced stage and has an appointment with urologist to discuss treatment options. [facility] Medical History Hyperlipidemia Annual physical exam HTN (hypertension) BPH (benign prostatic hyperplasia) Overweight Surgical History H/O colonoscopy Family History Mother AD (Alzheimer's disease) Hypertension Father Colorectal cancer Prostate cancer Social History Household Members Other:: , bookeeping business, Housing: House Patient Tobacco Use Status: Former Tobacco user ( ) e-Cigarette/Vaping Use: Never Used Current occupational status: employed Cognitive needs: No Hearing needs: No Vision needs: Yes Questionnaire Thrive Questionnaire Date Thrive assessed: 12/21/22 JUAN-7 AMB Questionnaire JUAN-7 Date JUAN - 7 assessed: 12/21/22 Source: Developed by Drs. Mani Rosario, Rosana Bowman, Guru Veras and colleagues, with an educational gucci from [employer]. Review of Systems Const All systems reviewed & are unremarkable except as noted in HPI and below Eyes Reports no additional complaints ENT Reports no additional complaints Card Reports no additional complaints Resp Reports no additional complaints GI Reports no additional complaints Reports no additional complaints Physical exam (Primary Care) Vital Signs: Last Vital Signs Pulse 63 02/19/24 11:07 BP 124/66 02/19/24 11:07 Pulse Ox 97 02/19/24 11:07 Oxygen Delivery Method Room Air 02/19/24 11:07 BMI result Body Mass Index 32.4 Tobacco/Smoking Status: Tobacco use Status Tobacco use date assessed 02/19/24 02/19/24 11:27 Patient Tobacco Use Status Former Tobacco user ( ) 02/19/24 11:07 e-Cigarette/Vaping Use Never Used 02/19/24 11:07 Thrive Assessment: Date of Thrive Assessment Date Thrive assessed 12/21/22 02/19/24 11:07 Const General: no acute distress Resp Effort & Inspection: normal respiratory effort Auscultation: clear to auscultation bilaterally Cardio Rhythm: regular rhythm Heart sounds: S1 normal heart sound present and S2 normal heart sound present GI Inspection: Yes normal to inspection Palpation (GI): Soft to palpation Coding Level of Care Code Est Pt Level 4 (75874) Diagnoses Thrombocytopenia D69.6 Fatty liver K76.0 HTN (hypertension) I10 Prostate cancer C61 Anemia D64.9 Assessment & Plan Assessment & Plan (1) Thrombocytopenia: Code(s): D69.6 - Thrombocytopenia, unspecified Category: Medical Plan: For borderline thrombocytopenia obtain abdominal ultrasound to evaluate for chronic liver disease and splenomegaly (2) Fatty liver: Code(s): K76.0 - Fatty (change of) liver, not elsewhere classified Category: Medical Plan: Obtain abdominal ultrasound to evaluate for fatty liver (3) HTN (hypertension): Code(s): I10 - Essential (primary) hypertension Category: Medical Plan: Continue 10 mg of olmesartan. Patient has been cutting 20 mg tablets in half and once finished a supply of 20 mg will start 10 mg (4) Prostate cancer: Comment: low grade, f/u [facility] , [place] Code(s): C61 - Malignant neoplasm of prostate Category: Medical Plan: Follow-up with urology at [facility] (5) Anemia: Comment: nl Iron and vit B12, 12/2023 Code(s): D64.9 - Anemia, unspecified Category: Medical Plan: MONITOR CBC Orders: Orders Comprehensive [place]. Panel Fast 5 Months C61 - Malignant neoplasm of prostate, D64.9 - Anemia, unspecified, D69.6 - Thrombocytopenia, unspecified, I10 - Essential (primary) hypertension Protein Electrophoresis, Serum 5 Months C61 - Malignant neoplasm of prostate, D64.9 - Anemia, unspecified, D69.6 - Thrombocytopenia, unspecified, I10 - Essential (primary) hypertension US abdomen complete Today D69.6 - Thrombocytopenia, unspecified, K76.0 - Fatty (change of) liver, not elsewhere classified Complete Blood Count Auto Diff 5 Months C61 - Malignant neoplasm of prostate, D64.9 - Anemia, unspecified, D69.6 - Thrombocytopenia, unspecified, I10 - Essential (primary) hypertension Magnesium 5 Months C61 - Malignant neoplasm of prostate, D64.9 - Anemia, unspecified, D69.6 - Thrombocytopenia, unspecified, I10 - Essential (primary) hypertension Immunofixation Pnl, Serum 5 Months C61 - Malignant neoplasm of prostate, D64.9 - Anemia, unspecified, D69.6 - Thrombocytopenia, unspecified, I10 - Essential (primary) hypertension Medications: New olmesartan 10 mg (2 x 5 mg) PO DAILY 180 tabs 0RF Discontinued olmesartan Discontinued Reason: Doctor's Order 20 mg PO DAILY 90 tabs 3RF
== END 2024-02-19 12:06 | disposition home or self-care (01) ==
PROVIDERS: PCP Internal Medicine; Visit Provider Internal Medicine
DX: D69.6 Thrombocytopenia, unspecified (principal); K76.0 Fatty (change of) liver, not elsewhere classified; I10 Essential (primary) hypertension; C61 Malignant neoplasm of prostate; D64.9 Anemia, unspecified

== ENCOUNTER → 2024-02-19 10:46 | Outpatient (BNVA) | payer MEDICARE, SELFPAY | PROVIDERS: PCP Internal Medicine; Visit Provider Internal Medicine | DX: D69.6 Thrombocytopenia, unspecified (principal); K76.0 Fatty (change of) liver, not elsewhere classified; I10 Essential (primary) hypertension; C61 Malignant neoplasm of prostate; D64.9 Anemia, unspecified | CPT/HCPCS: 99212 ==

== ENCOUNTER 2024-02-28 09:41 | Outpatient (REF) | payer MEDICARE, SELFPAY ==
--- NOTE | ~2024-02-28 | US_ITS ---
EXAMINATION: US ABDOMEN COMPLETE CLINICAL INFORMATION: Thrombocytopenia, unspecified. Fatty liver. COMPARISON: Ultrasound kidneys and bladder 10/08/2021 and 09/30/2020. TECHNIQUE: Real-time imaging of the abdominal viscera. FINDINGS: PANCREAS: Normal. The tail is obscured by overlying bowel gas. ABDOMINAL AORTA: The proximal, mid, and distal segments are normal in caliber. INFERIOR VENA CAVA: Visualized portions are normal. LIVER: Normal. The liver is normal in size. The liver contour is normal. Parenchymal echogenicity is normal. No focal hepatic lesion. There is no intrahepatic biliary duct dilatation seen. GALLBLADDER: Normal. The gallbladder is physiologically distended without evidence of stones, sludge, polyps, wall thickening or pericholecystic fluid. COMMON BILE DUCT: Normal in caliber measuring 0.51 cm in diameter. RIGHT KIDNEY: 2 simple lower pole cyst, larger measuring 4.5 x 4.5 x 4.7 cm. Normal cortical thickness and echogenicity. No hydronephrosis or renal calculi. The kidney measures 12.1 cm in maximum dimension. LEFT KIDNEY: Simple upper pole cyst measuring 4.9 x 4 x 5 x 5.2 cm. Normal cortical thickness and echogenicity. No hydronephrosis or renal calculi. The kidney measures 12.6 cm in maximum dimension. SPLEEN: Normal. The spleen measures 10.1 cm in maximum dimension. FREE FLUID: None. US/US abdomen complete IMPRESSION: 1. Normal liver. 2. Bilateral simple renal cysts. 3. Normal biliary ducts and gallbladder. 4. No clinically significant findings. Electronically signed by: Jean Pierre Melton MD 03/26/2024 10:06 AM SAMMY
== END 2024-02-28 09:42 | disposition home or self-care (01) ==
LOC: HO.HMGCX 09:41
PROVIDERS: PCP Internal Medicine; Visit Provider Internal Medicine
DX: D69.6 Thrombocytopenia, unspecified (principal); K76.0 Fatty (change of) liver, not elsewhere classified
CPT/HCPCS: 76700

== ENCOUNTER → 2024-02-28 09:49 | Outpatient (BNV) | payer MEDICARE, SELFPAY | PROVIDERS: PCP Internal Medicine; Visit Provider Radiology Diagnostic Radiology | DX: N28.1 Cyst of kidney, acquired (principal) | CPT/HCPCS: 76700 ==

== ENCOUNTER 2024-06-13 10:16 | Outpatient (AMB) | payer MEDICARE, SELFPAY ==
[2024-06-13 10:22] VITALS: BP 118/68; PULSE 73; TEMP 36.7; O2SAT 97; BMI 32.4
--- NOTE | 2024-06-13 10:22 | AM.OFFWIN_ITS ---
Intake Vital Signs 3 06/13/24 10:22 Height 5 ft 11 in Weight 232 lb BMI 32.4 BP 118/68 Blood Pressure Location Lt brachial Position Sitting Pulse 73 Pulse Source Pulse Oximeter Temp 98.1 F Temp Source Oral Pulse Oximetry (%) 97 Intake Visit Reasons: EP ? tick bite on LT leg Intake Note: pt is here for c/o red inflamed bump on left upper thigh Patient Tobacco Use Status: Former Tobacco user ( ) Allergies meperidine [From Demerol] Allergy (Verified 06/13/24 10:22) it took a while to recover from it to wake up Do you need a note to return to daycare/school/sports/work: No HPI HPI Comments 2 History of Present Illness0 Details 68 y/o male patient who presents to the walk in clinic with c/o left thigh redness with bump for 1 week now. Reports that the area is very Tender and redness. He does have h/o Varicose Veins on B/L lower extremities. Denies being outdoors in the wooded areas. Denies any recent Tick bites. [facility] Medical History (Updated 06/13/24 @ 10:48 by Devi Blackwood NP) Cellulitis of left leg Hyperlipidemia Annual physical exam HTN (hypertension) BPH (benign prostatic hyperplasia) Overweight Surgical History H/O colonoscopy Family History Mother AD (Alzheimer's disease) Hypertension Father Colorectal cancer Prostate cancer Social History Household Members Other:: , bookeeping business, Housing: House Patient Tobacco Use Status: Former Tobacco user ( ) e-Cigarette/Vaping Use: Never Used Current occupational status: employed Cognitive needs: No Hearing needs: No Vision needs: Yes Review of Systems Const All systems reviewed & are unremarkable except as noted in HPI and below Physical Exam Vital Signs: Last Vital Signs Temp 98.1 F 06/13/24 10:22 Pulse 73 06/13/24 10:22 BP 118/68 06/13/24 10:22 Pulse Ox 97 06/13/24 10:22 BMI result Body Mass Index 32.4 Const General: cooperative, comfortable and no acute distress Orientation/consciousness: patient oriented x3 Skin Full body images: 2 1. Large engorged Varicose Veins present on both thighs and lower legs. 2. Large engorged Varicose Veins present on both thighs and lower legs. Neuro General: patient oriented x3 Extrem Knee images: 2 1. Small localized area of redness skin and TTP. Large Varicose Veins present. Assessment & Plan Assessment & Plan (1) Cellulitis of left leg: Code(s): L03.116 - Cellulitis of left lower limb Plan: Ordered Keflex Possibly Cellulitis. Very Low chance for Tick Bite Denies any recent Tick Bites or removing any Ticks. Medications: New 2 cephalexin 500 mg PO BID 7 days 14 caps 0RF L03.116 - Cellulitis of left lower limb Coding Level of Care Code Est Pt Level 4 (70020) Diagnoses Cellulitis of left leg L03.116 Time Spent (min) 20
== END 2024-06-13 10:51 | disposition home or self-care (01) ==
PROVIDERS: PCP Internal Medicine; Visit Provider Nurse Practitioner Family
DX: L03.116 Cellulitis of left lower limb (principal)

== ENCOUNTER → 2024-06-13 10:16 | Outpatient (BNVA) | payer MEDICARE, SELFPAY | PROVIDERS: PCP Internal Medicine | DX: L03.116 Cellulitis of left lower limb (principal) | CPT/HCPCS: 99212 ==

== ENCOUNTER 2024-06-27 14:04 | Outpatient (REF) | payer MEDICARE, SELFPAY ==
[2024-06-27 16:23] LABS: MANUAL DIFF FLAG NO
[2024-06-27 16:30] LABS: Basophils Percent Auto 0.8 % (0-2); Eosinophils Absolute Auto 0.1 X10*3/uL (0.0-0.4); Eosinophils Percent Auto 1.5 % (0-4); Hemoglobin 13.7 g/dl (14.0-18.0); Imm Gran Abs Auto 0.02 X10*3/uL (0.00-0.03); Imm Gran Pct Auto 0.4 % (0.0-0.4); Lymphocytes Absolute Auto 1.3 X10*3/uL (1.2-4.9); Lymphocytes Percent Auto 26.8 % (20-40); Mean Corpuscular HGB Conc 34.3 g/dl (31.0-36.0); Mean Corpuscular Hemoglobin 31.9 pg (27.0-33.0); Mean Corpuscular Volume 93.2 fL (80.0-98.0); Mean Platelet Volume 11.7 fL (9.4-12.4); Monocytes Absolute Auto 0.4 X10*3/uL (0.1-1.2); Monocytes Percent Auto 9.1 % (2-11); Neutrophils Percent Auto 61.4 % (45-73); Platelet Count 141 X10*3/uL (160-400); Red Blood Count 4.29 X10*6/uL (4.60-5.80); Red Cell Distribution Width 12.5 % (11.0-16.0); White Blood Count 4.8 X10*3/uL (4.8-10.8)
[2024-06-27 16:46] LABS: Alanine Aminotransferase 20 U/L (0-40); Albumin Level 4.2 g/dL (3.5-5.0); Alkaline Phosphatase 60 U/L (39-117); Anion Gap 11 (12-20); Aspartate Amino Transferase 25 U/L (5-37); Bilirubin Total 0.8 mg/dL (0.0-1.0); Blood Urea Nitrogen 18 mg/dL (9-16); Carbon Dioxide 26 mmol/L (22-29); Chloride 106 mmol/L (96-108); Estimated Glomerular Filt Rate > 60; Glucose Fasting 87 mg/dL (60-99); Magnesium 1.9 mg/dL (1.6-2.6); Potassium 4.1 mmol/L (3.3-5.1); Sodium 139 mmol/L (135-145); Total Protein 7.4 g/dL (6.5-8.0)
[2024-07-02 11:32] LABS: IgA 280 mg/dL (70-320); IgG 1005 mg/dL (600-1540); IgM 71 mg/dL (50-300)
[2024-07-02 17:17] LABS: Prot Elec - Albumin 4.3 g/dL (3.8-4.8); Prot Elec - Alpha1 0.2 g/dL (0.2-0.3); Prot Elec - Alpha2 0.7 g/dL (0.5-0.9); Prot Elec - Beta 1 0.4 g/dL (0.4-0.6); Prot Elec - Beta 2 0.4 g/dL (0.2-0.5); Prot Elec - Gamma 0.8 g/dL (0.8-1.7); Prot Elec - Total Protein 6.8 g/dL (6.1-8.1)
== END 2024-06-27 14:05 | disposition home or self-care (01) ==
LOC: HO.HMGCLDS 14:04
PROVIDERS: PCP Internal Medicine; Visit Provider Internal Medicine
DX: D69.6 Thrombocytopenia, unspecified (principal); D64.9 Anemia, unspecified; C61 Malignant neoplasm of prostate; I10 Essential (primary) hypertension
CPT/HCPCS: 36415; 80053; 82784; 83735; 84165; 85025; 86334

== ENCOUNTER 2024-07-02 10:39 | Outpatient (AMB) | payer MEDICARE, SELFPAY ==
--- NOTE | 2024-07-02 10:40 | A.OFFPC_ITS ---
Vital Signs 07/02/24 10:41 Height 5 ft 11 in Weight 241 lb BMI 33.6 BP 120/62 Blood Pressure Location Rt brachial Position Sitting Pulse 70 Pulse Source Pulse Oximeter Pulse Oximetry (%) 98 Oxygen Delivery Method Room Air Intake Visit Reasons: Labs review Independent Living Advisor Required: No Accompanied by: Self / Same As Patient Allergies meperidine [From Demerol] Allergy (Verified 07/02/24 10:44) it took a while to recover from it to wake up Medication List - Last Reconciled 07/02/24 by Maida Belcher MD apple cider vinegar 480 mg PO DAILY ascorbic acid (vitamin C) mg PO B jhlskto-H-vqzqs acid-Zn 500-400-15 mg-mcg-mg tabs PO DAILY cholecalciferol (vitamin D3) 50 mcg PO DAILY dextrin (Clear Fiber) 2 tsp PO DAILY magnesium 500 mg PO DAILY melatonin 3 mg PO BEDTIME PRN olmesartan 10 mg (2 x 5 mg) PO DAILY omega-3 fatty acids 1,000 mg PO DAILY selenium 200 mcg PO .every other day turmeric root extract 1,000 mg PO DAILY zinc 50 mg PO DAILY Tobacco use date assessed: 07/02/24 Fall risk assessment: No Falls in past year Last assessed Fall Risk: 07/02/24 Dental Screening Dental Screen Date: 07/02/24 Did you have a dental visit in the last 12 months?: Yes Did you have a dental problem in the last 6 months where you did not have access to dental care?: No Was dental information given to patient?: Patient has dentist HPI Labs review 2 HPI Details Patient presents with a left upper thigh pain swelling and redness over varicose veins. He was seen in urgent Care was prescribed Keflex which he took for 7 days. Patient denies fever chills or recent travel. He reports slightly decreased redness and swelling. Hypertension is controlled on olmesartan. [facility] Medical History Cellulitis of left leg Hyperlipidemia Annual physical exam HTN (hypertension) BPH (benign prostatic hyperplasia) Overweight Surgical History H/O colonoscopy Family History Mother AD (Alzheimer's disease) Hypertension Father Colorectal cancer Prostate cancer Social History Household Members Other:: , bookeeping business, Housing: House Patient Tobacco Use Status: Former Tobacco user ( ) e-Cigarette/Vaping Use: Never Used Current occupational status: employed Cognitive needs: No Hearing needs: No Vision needs: Yes Questionnaire PHQ-9 Over the last 2 weeks, how often have you been bothered by any of the following problems? 1. Little interest or pleasure in doing things: not at all 2. Feeling down, depressed, or hopeless: not at all 3. Trouble falling or staying asleep, or sleeping too much: more than half the days 4. Feeling tired or having little energy: not at all 5. Poor appetite or overeating: not at all 6. Feeling bad about yourself - or that you are a failure or have let yourself or your family down: not at all 7. Trouble concentrating on things, such as reading the newspaper or watching television: not at all 8. Moving or speaking so slowly that other people could have noticed. Or the opposite - being so fidgety or restless that you have been moving around a lot more than usual: not at all 9. Thoughts that you would be better off or of hurting yourself in some way: not at all Total score: 2 Depression Screening Interpretation: Negative Depression Screening Done: Yes 28423 - PHQ-9 Billing: Yes Source: Developed by Drs. Mani Rosario, Rosana Bowman, Guru Veras and colleagues, with an educational gucci from [employer]. Thrive Questionnaire Date Thrive assessed: 07/02/24 I am a: Patient What is your living situation today?: I choose not to answer this question Within the past 12 months, did the food you bought not last and you didn't have the money to get more?: I choose not to answer this question Within the past 12 months, did you worry whether your food would run out before you got money to buy more?: I choose not to answer this question Do you have trouble paying for medicines?: I choose not to answer this question Do you have trouble getting transportation to medical appointments?: I choose not to answer this question Do you have trouble paying your heating and electricity bill?: I choose not to answer this question Do you have trouble taking care of your child, family member or friend?: I choose not to answer this question Do you have trouble with day-to-day activities such as bathing, preparing meals, shopping, managing finances, etc.?: I choose not to answer this question Are you currently unemployed and looking for a job?: I choose not to answer this question Are you interested in more education?: I choose not to answer this question Please select the resources that you would like help with: None Currently or been in a relationship where the following occur: I choose not to answer THRIVE Score: 0 AUDIT C Alcohol Use Questionnaire (AUDIT-C) 1. How often do you have a drink containing alcohol?: Never 3. How often do you have six or more drinks on one occasion?: Never Total Score: 0 Score Reviewed/Action Taken: Yes JUAN-7 AMB Questionnaire JUAN-7 Date JUAN - 7 assessed: 07/02/24 Feeling nervous, anxious, or on edge: 0 = Not at all Not being able to stop or control worryin = Not at all Worrying too much about different things: 0 = Not at all Trouble relaxin = Not at all Being so restless that it is hard to sit still: 0 = Not at all Becoming easily annoyed or irritable: 0 = Not at all Feeling afraid as if something awful might happen: 0 = Not at all Total JUAN-7 score (0-4 normal; 5-9 mild; 10-14 moderate; 15-21 severe): 0 Source: Developed by Drs. Mani Rosario, Rosana Bowman, Guru Veras and colleagues, with an educational gucci from [employer]. JUAN-7 Assessment Billing JUAN-7 Assessment Tool: JUAN-7 Assessment 67443 Review of Systems Const All systems reviewed & are unremarkable except as noted in HPI and below ENT Reports no additional complaints Card Reports no additional complaints Resp Reports no additional complaints GI Reports no additional complaints Reports no additional complaints Physical exam (Primary Care) Vital Signs: Last Vital Signs Pulse 70 07/02/24 10:41 BP 120/62 07/02/24 10:41 Pulse Ox 98 07/02/24 10:41 Oxygen Delivery Method Room Air 07/02/24 10:41 BMI result Body Mass Index 33.6 Tobacco/Smoking Status: Tobacco use Status Tobacco use date assessed 07/02/24 07/02/24 10:45 Patient Tobacco Use Status Former Tobacco user (1990s ) 07/02/24 10:40 e-Cigarette/Vaping Use Never Used 07/02/24 10:40 PHQ-9: PHQ-9 Score PHQ-9: Total score 2 07/02/24 10:45 Depression Screening Interpretation: Negative Thrive Assessment: Date of Thrive Assessment Date Thrive assessed 07/02/24 07/02/24 10:40 Currently or been in a relationship where the following occur: I choose not to answer Const General: no acute distress HENMT Head: Yes normal to inspection Eyes General: appearance normal, both eyes and all related structures Resp Effort & Inspection: normal respiratory effort Auscultation: clear to auscultation bilaterally Cardio Rhythm: regular rhythm Heart sounds: S1 normal heart sound present and S2 normal heart sound present Extrem Other: There is erythema soft tissue swelling and tenderness over left inner thigh superficial veins, right upper back there is a 2 cm subcutaneous cyst with slight erythema no drainage Coding Level of Care Code Est Pt Level 4 (06862) Diagnoses Left leg swelling M79.89 Subcutaneous abscess L02.91 HTN (hypertension) I10 Additional Codes JUAN-7 Assessment Billing - JUAN-7 Assessment Tool: JUAN-7 Assessment 73590 ([id number]) PHQ-9 - 81825 - PHQ-9 Billing: Yes ([id number]) Assessment & Plan Assessment & Plan (1) Left leg swelling: Code(s): M79.89 - Other specified soft tissue disorders Category: Medical Plan: Obtain ultrasound to evaluate for DVT (2) Subcutaneous abscess: Comment: R UPPER BACK Code(s): L02.91 - Cutaneous abscess, unspecified Category: Medical Plan: Referred to general surgeon (3) HTN (hypertension): Code(s): I10 - Essential (primary) hypertension Category: Medical Plan: Continue olmesartan Orders: Orders US venous duplex LE LT Today M79.89 - Other specified soft tissue disorders Referrals General Surgery Referral L02.91 - Cutaneous abscess, unspecified
[2024-07-02 10:41] VITALS: BP 120/62; PULSE 70; O2SAT 98; BMI 33.6
== END 2024-07-02 11:44 | disposition home or self-care (01) ==
LOC: HO.HMCC 10:39
PROVIDERS: PCP Internal Medicine; Visit Provider Internal Medicine
DX: M79.89 Other specified soft tissue disorders (principal); L02.91 Cutaneous abscess, unspecified; I10 Essential (primary) hypertension

== ENCOUNTER → 2024-07-02 10:39 | Outpatient (BNVA) | payer MEDICARE, SELFPAY | PROVIDERS: PCP Internal Medicine; Visit Provider Internal Medicine ==

== ENCOUNTER 2024-07-02 11:54 | Outpatient (REF) | payer MEDICARE, SELFPAY ==
--- NOTE | ~2024-07-02 | US_ITS ---
EXAMINATION: US LOWER EXTREMITY VEINS LIMITED FOLLOW UP LEFT HISTORY: M79.89 - Other specified soft tissue disorders LT LEG SWELLING R/O DVT COMPARISON: There are no prior studies for comparison. TECHNIQUE: Duplex and color Doppler sonographic examination of the deep venous system of the left lower extremity was performed. FINDINGS: The common femoral, superficial femoral, and popliteal veins are patent demonstrating normal compressibility, spontaneous flow, and augmentation. There is a normal color and spectral Doppler waveform appearance of the visualized deep venous system above the knee. The posterior tibial and peroneal veins are patent. There is thrombosis of the greater saphenous vein in the mid and distal thigh. The proximal portion of the greater saphenous vein is patent. US/US venous duplex LE LT IMPRESSION: No evidence of acute DVT in the left lower extremity. Thrombosis of the mid and distal greater saphenous vein. Follow-up after treatment is suggested to evaluate for proximal extension. Electronically signed by: Mani Reyes MD 07/02/2024 01:17 PM EDT
== END 2024-07-02 11:55 | disposition home or self-care (01) ==
LOC: HO.HMGCX 11:54
PROVIDERS: PCP Internal Medicine; Visit Provider Internal Medicine
DX: M79.605 Pain in left leg (principal); M79.89 Other specified soft tissue disorders
CPT/HCPCS: 93971; 96127; 99212

== ENCOUNTER → 2024-07-02 11:55 | Outpatient (BNV) | payer MEDICARE, SELFPAY | PROVIDERS: PCP Internal Medicine; Visit Provider Radiology Diagnostic Radiology | DX: M79.89 Other specified soft tissue disorders (principal) | CPT/HCPCS: 93971 ==

== ENCOUNTER 2024-07-09 11:57 | Outpatient (AMB) | payer MEDICARE, SELFPAY ==
[2024-07-09 11:58] VITALS: BP 158/74; PULSE 67; O2SAT 98; BMI 34.4
--- NOTE | 2024-07-09 11:58 | A.OFFVIS_ITS ---
Vital Signs 07/09/24 11:58 Height 5 ft 11 in Weight 246 lb 7.629 oz BMI 34.4 BP 158/74 H Blood Pressure Location Lt brachial Position Sitting Pulse 67 Pulse Source Pulse Oximeter Pulse Oximetry (%) 98 Oxygen Delivery Method Room Air Intake Visit Reasons: Cutaneous abscess Intake Note: Patient referred by pcp Dr. Belcher for cyst on Rt upper back. Patient c/o: pain when touched, no discharge. Allergies meperidine [From Demerol] Allergy (Verified 07/09/24 12:01) it took a while to recover from it to wake up Medication List - Last Reconciled 07/09/24 by Brandyn Sanford MD apple cider vinegar 480 mg PO DAILY ascorbic acid (vitamin C) mg PO B gncznfr-D-jbrsi acid-Zn 500-400-15 mg-mcg-mg tabs PO DAILY cephalexin 500 mg PO TID cholecalciferol (vitamin D3) 50 mcg PO DAILY dextrin (Clear Fiber) 2 tsp PO DAILY ibuprofen 600 mg PO Q8H ibuprofen 800 mg PO Q8H PRN magnesium 500 mg PO DAILY melatonin 3 mg PO BEDTIME PRN olmesartan 10 mg (2 x 5 mg) PO DAILY omega-3 fatty acids 1,000 mg PO DAILY selenium 200 mcg PO .every other day turmeric root extract 1,000 mg PO DAILY zinc 50 mg PO DAILY HPI Comments Details: Patient presents with an infected did sebaceous cyst/abscess of the right mid back. He has had this roughly 2 weeks time. He was given antibiotics with minimal improvement. Patient was never had issues before. Chart was reviewed and patient evaluated [facility] Medical History Cellulitis of left leg Hyperlipidemia Annual physical exam HTN (hypertension) BPH (benign prostatic hyperplasia) Overweight Surgical History H/O colonoscopy Family History Mother AD (Alzheimer's disease) Hypertension Father Colorectal cancer Prostate cancer Social History Household Members Other:: , bookeeping business, Housing: House Patient Tobacco Use Status: Former Tobacco user ( ) e-Cigarette/Vaping Use: Never Used Current occupational status: employed Cognitive needs: No Hearing needs: No Vision needs: Yes Physical Exam Vital Signs: Last Vital Signs Pulse 67 07/09/24 11:58 BP 158/74 H 07/09/24 11:58 Pulse Ox 98 07/09/24 11:58 Oxygen Delivery Method Room Air 07/09/24 11:58 BMI result Body Mass Index 34.4 Back/Spine/Pelvis Other: Patient was a large roughly 4 x 3 cm right mid back infected sebaceous cyst/abscess. Office Procedures I&D Drain Details: Risks, benefits, alternatives of incision drainage of large/complex right mid back abscess were reviewed with the patient included but not limited to bleeding, infection, recurrence, numbness, pain, scarring the patient wished to proceed. All questions answered. After appropriate positioning, patient underwent 1% lidocaine and Betadine prep and transverse incision made over the large abscess were copious amounts of purulent material were retrieved. Cultures obtained. Wound was irrigated, secured hemostasis, packed and dressing applied. Patient tolerated procedure well. 96666-Cnoaarnl of Skin Abscess, complex All charges added?: Procedure code (CPT) selection complete Office Meds lidocaine 1 %-epinephrine 1:100,000 injection solution Performing Provider: Brandyn Sanford MD Performing Location: [facility] General Surgeons Administered by: Brandyn Sanford MD on 07/09/24 12:19 Dose Route Admin Location Dispensed Lot Number Expiration Date [facility] Computer Numerical Control Grinder 10 mL Infiltration 10 mL Assessment & Plan Assessment & Plan (1) Subcutaneous abscess: Comment: R UPPER BACK Code(s): L02.91 - Cutaneous abscess, unspecified Category: Surgical Plan: Patient has been given local instructions and will make arrangements with Rob of the office nurse regarding packing changes. Does not want narcotics for analgesia will be given a script for Motrin as well as antibiotics. He will see me as directed or p.r.n.. All questions answered. Orders: Orders AMB Incision & Drainage Today L02.91 - Cutaneous abscess, unspecified Medications: New ibuprofen 800 mg PO Q8H PRN 30 tabs 0RF pain cephalexin 500 mg PO TID 30 caps 0RF lidocaine-epinephrine 1 %-1:100,000 10 mL Infiltration ONCE 10 mL 0RF L02.91 - Cutaneous abscess, unspecified Coding Level of Care Code New Pt Level 5 (18942) Diagnoses Subcutaneous abscess L02.91 CPT Codes I&D Drain - Drain 2: 48596-[place]df[place] of Skin Abscess, complex ([id number])
== END 2024-07-09 12:25 | disposition home or self-care (01) ==
LOC: HO.HGS 11:58
PROVIDERS: PCP Internal Medicine; Visit Provider Surgery
DX: L02.91 Cutaneous abscess, unspecified (principal)
CPT/HCPCS: 10060; 99204

== ENCOUNTER 2024-07-09 11:57 | Outpatient (REF) | payer MEDICARE, SELFPAY | END 2024-07-09 11:58 | disposition home or self-care (01) | LOC: HO.LAB 11:57 | PROVIDERS: PCP Internal Medicine; Visit Provider Surgery | DX: L02.91 Cutaneous abscess, unspecified (principal) | CPT/HCPCS: 10060; 87070; 87205; 99202; J2004 ==

== ENCOUNTER → 2024-07-10 11:12 | Outpatient (BNVA) | payer MEDICARE, SELFPAY | PROVIDERS: PCP Internal Medicine; Visit Provider Surgery | DX: Z48.1 Encounter for planned postprocedural wound closure (principal) | CPT/HCPCS: 99211 ==

== ENCOUNTER 2024-07-23 12:52 | Outpatient (REF) | payer MEDICARE, SELFPAY | END 2024-07-23 12:53 | disposition home or self-care (01) | LOC: HO.LNP 12:52 | PROVIDERS: PCP Internal Medicine; Visit Provider Surgery | DX: L72.3 Sebaceous cyst (principal) | CPT/HCPCS: 11404; 88304; 99212; J2004 ==

== ENCOUNTER 2024-07-23 12:52 | Outpatient (AMB) | payer MEDICARE, SELFPAY ==
[2024-07-23 13:04] VITALS: BP 133/64; PULSE 99; BMI 33.9
--- NOTE | 2024-07-23 13:04 | A.OFFVIS_ITS ---
Vital Signs 07/23/24 13:04 Height 5 ft 11 in Weight 243 lb BMI 33.9 BP 133/64 Blood Pressure Location Rt brachial Position Sitting Pulse 99 Intake Visit Reasons: wound check Intake Note: Patient here for wound check. Reports abscess on Rt upper back healed well. Denies oozing, tenderness. Classified Ad Clerk Required: No Accompanied by: Self / Same As Patient Allergies meperidine [From Demerol] Allergy (Verified 07/23/24 13:06) it took a while to recover from it to wake up Medication List - Last Reconciled 07/23/24 by Brandyn Sanford MD apple cider vinegar 480 mg PO DAILY ascorbic acid (vitamin C) mg PO B mvpiocg-N-oedfj acid-Zn 500-400-15 mg-mcg-mg tabs PO DAILY cholecalciferol (vitamin D3) 50 mcg PO DAILY dextrin (Clear Fiber) 2 tsp PO DAILY ibuprofen 600 mg PO Q8H ibuprofen 800 mg PO Q8H PRN magnesium 500 mg PO DAILY melatonin 3 mg PO BEDTIME PRN olmesartan 10 mg (2 x 5 mg) PO DAILY omega-3 fatty acids 1,000 mg PO DAILY selenium 200 mcg PO .every other day turmeric root extract 1,000 mg PO DAILY zinc 50 mg PO DAILY HPI Comments Details: Patient presents for evaluation of possible excision of his right upper back sebaceous cyst. He underwent I&D of this in the past. It has persisted and he wished to have it removed. Risks and benefits and alternatives of excision of right upper back sebaceous c yst reviewed with the patient included but not limited to bleeding, infection, recurrence, numbness, pain, scarring the patient wished to proceed. All questions answered. Consent signed. [facility] Medical History Cellulitis of left leg Hyperlipidemia Annual physical exam HTN (hypertension) BPH (benign prostatic hyperplasia) Overweight Surgical History H/O colonoscopy Family History Mother AD (Alzheimer's disease) Hypertension Father Colorectal cancer Prostate cancer Social History Household Members Other:: , bookeeping business, Housing: House Patient Tobacco Use Status: Former Tobacco user ( ) e-Cigarette/Vaping Use: Never Used Current occupational status: employed Cognitive needs: No Hearing needs: No Vision needs: Yes Physical Exam Vital Signs: Last Vital Signs Pulse 99 07/23/24 13:04 BP 133/64 07/23/24 13:04 BMI result Body Mass Index 33.9 Office Procedures Excision Details: Patient was a roughly 4 x 3 cm right upper back sebaceous cyst. After appropriate positioning, patient underwent 1% lidocaine and Betadine prep and a transverse by elliptical incision of this sebaceous cyst. Specimen sent to pathology. Wound was irrigated, secured hemostasis, and closed using running subcuticular 3-0 Vicryl suture followed by Steri-Strips and sterile dressings. Patient tolerated procedure well. 23585-edopa/arms/legs 3.1-4cm Procedure code (CPT) selection complete Office Meds lidocaine 1 %-epinephrine 1:100,000 injection solution Performing Provider: Brandyn Sanford MD Performing Location: [facility] [place] [facility] Administered by: Brandyn Sanford MD on 07/23/24 13:37 Dose Route Admin Location Dispensed Lot Number Expiration Date [employer] Electric Stove Installer 20 mL Infiltration 20 mL Assessment & Plan Assessment & Plan (1) Sebaceous cyst: Code(s): L72.3 - Sebaceous cyst Category: Surgical Plan: Patient was been given local instructions including avoiding strenuous activities, ice pack to the wound periodically, Tylenol or Motrin p.r.n. pain, may shower in 2 days removing only outside dressing leaving Steri-Strips intact. All questions answered. Patient was see me as directed or p.r.n. Orders: Orders AMB Excision Today L72.3 - Sebaceous cyst Medications: New lidocaine-epinephrine 1 %-1:100,000 20 mL Infiltration ONCE 30 mL 0RF L72.3 - Sebaceous cyst Coding Level of Care Code Est Pt Level 5 (64828) Diagnoses Sebaceous cyst L72.3 CPT Codes Trunk/Arms/Legs - CPT: 93442-gpxht/arms/legs 3.1-4cm ([id number])
== END 2024-07-23 13:37 | disposition home or self-care (01) ==
LOC: HO.HGS 12:52
PROVIDERS: PCP Internal Medicine; Visit Provider Surgery
DX: L72.3 Sebaceous cyst (principal)
CPT/HCPCS: 11404; 99214

== ENCOUNTER 2024-07-31 09:01 | Outpatient (AMB) | payer MEDICARE, SELFPAY ==
--- NOTE | 2024-07-31 09:03 | MHC.OFFVIS ---
Intake Visit Reasons: s/p excision abcess Intake Note: Patient here s/p cyst excision on Rt upper back. Reports incision healing well. Patient c/o: itch along scar line. Denies pain, oozing. Steri strips removed without incident. WLE: 07-23-2024 Software Quality Specialist Required: No Accompanied by: Self / Same As Patient Allergies meperidine [From Demerol] Allergy (Verified 07/31/24 09:08) it took a while to recover from it to wake up HPI Comments Details: Patient presents for follow-up. He has no wound issues or complaints. Pathology is benign. [facility] Medical History (Updated 07/09/24 @ 14:54 by Maida Belcher MD) Cellulitis of left leg Hyperlipidemia Annual physical exam HTN (hypertension) BPH (benign prostatic hyperplasia) Overweight Surgical History (Updated 07/31/24 @ 09:13 by Brandyn Sanford MD) Hx of surgical procedure (07/23/24) H/O colonoscopy Family History Mother AD (Alzheimer's disease) Hypertension Father Colorectal cancer Prostate cancer Social History Household Members Other:: , bookeeping business, Housing: House Patient Tobacco Use Status: Former Tobacco user ( ) e-Cigarette/Vaping Use: Never Used Current occupational status: employed Cognitive needs: No Hearing needs: No Vision needs: Yes Physical Exam Back/Spine/Pelvis Other: Right mid back incision clean dry and intact healing well Assessment & Plan Assessment & Plan (1) Encounter for postoperative wound check: Code(s): Z48.89 - Encounter for other specified surgical aftercare Category: Surgical Plan Patient was been given local instructions including avoiding strenuous activities next few weeks time and otherwise follow-up p.r.n.. All questions answered Coding Level of Care Code Global (34632) Diagnoses Encounter for postoperative wound check Z48.89
== END 2024-07-31 09:40 | disposition home or self-care (01) ==
LOC: HO.HGS 09:02
PROVIDERS: PCP Internal Medicine; Visit Provider Surgery
DX: Z48.89 Encounter for other specified surgical aftercare (principal)
CPT/HCPCS: 99024

== ENCOUNTER → 2024-07-31 09:01 | Outpatient (BNVA) | payer MEDICARE, SELFPAY | PROVIDERS: PCP Internal Medicine; Visit Provider Surgery | DX: Z09 Encounter for follow-up examination after completed treatment for conditions other than malignant neoplasm (principal); Z87.2 Personal history of diseases of the skin and subcutaneous tissue; Z98.890 Other specified postprocedural states | CPT/HCPCS: 99212 ==

== ENCOUNTER 2024-12-26 10:22 | Outpatient (AMB) | payer MEDICARE, SELFPAY ==
[2024-12-26 10:42] VITALS: BP 124/66; PULSE 62; RESP 18; TEMP 36.7; O2SAT 97; BMI 33.9
--- NOTE | 2024-12-26 10:43 | AM.OFFVISMDC ---
Intake Vital Signs 12/26/24 10:42 12/26/24 10:53 Height 5 ft 11 in Weight 243 lb BMI 33.9 33.9 BP 124/66 Blood Pressure Location Lt brachial Position Sitting Respiration 18 Pulse 62 Pulse Source Pulse Oximeter Temp 98.0 F Temp Source Oral Pulse Oximetry (%) 97 Oxygen Delivery Method Room Air Intake Visit Reasons: SWV G0439 Intake Note: Pt is here today for AWV. Allergies meperidine (From Demerol) Allergy (Verified 12/26/24 10:45) it took a while to recover from it to wake up Medication List - Last Reconciled 12/26/24 by Maida Belcher MD apple cider vinegar 480 mg PO DAILY B ymdkmuh-O-blkkc acid-Zn 500-400-15 mg-mcg-mg tabs PO DAILY cholecalciferol (vitamin D3) 5,000 mcg PO DAILY dextrin (Clear Fiber) 2 tsp PO DAILY PRN lycopene 20 mg PO DAILY magnesium 360 mg PO DAILY melatonin 3 mg PO BEDTIME PRN selenium 200 mcg PO DAILY turmeric root extract 1,000 mg PO DAILY zinc 50 mg PO DAILY HPI SWV G0439 HPI Details Initiated the conversation about Advanced Directives. Advanced Directives help? patients prepare for current and future decisions about their medical treatment? and place of care. Discussed with patient that it is a process where a patients? current condition and prognosis are reviewed, their wishes for information? regarding their illness are elicited, and likely medical dilemmas are presented? and options discussed. The form can be amended as needed, reviewed yearly and? make changes as needed IPPE/AWV ? year old presents? for her ? Annual? Wellness Visit, initial visit.? Medical / Social History Reviewed? Past Medical History ?Yes? . ? [place]? of Care / Care Team list updated ?Yes . ? Surgical/Hospitalization? History ?Yes . ? Current Medications? (including OTC and supplements) ?Yes . ? Family History ?Yes? . ? Tobacco? Control form ?Yes . ? AUDIT-C (Alcohol use) form? ?Yes . ? Illicit drug use in Social? History ?Yes . ? Current diagnosis of? depression? ?No ? Appropriate PHQ2/PHQ9? completed ?Yes . ? Data entered by ?Medical? Accounts Executive and reviewed by provider ? Fall Risk ? Fall? History? Have you had any falls with? injury in the past year? ?No . ? Have you had two or more? falls in the past year? ?No . ? Fall Risk Assessment: ?No? falls in the past year . ? HRA filled out by? the patient, reviewed by Provider and scanned. ? IPPE/AWV ? Balance? Romberg? ?Yes . ? Tandem? walk ?Yes . ? Walk and? Turn ?Yes . ? Rise from? sit to stand ?Yes . ?Vision? Corrective? lens ?Yes ? Vision? screen ? Up-to-date, has an appointment [] for vision? screening and glaucoma screening ?Hearing? Whisper? test ?pass .? Initiated the conversation about Advanced Directives. Advanced Directives help? patients prepare for current and future decisions about their medical treatment? and place of care. Discussed with patient that it is a process where a patients? current condition and prognosis are reviewed, their wishes for information? regarding their illness are elicited, and likely medical dilemmas are presented? and options discussed. The form can be amended as needed, reviewed yearly and? make changes as needed Written? Plan?Completed. See Patient? Documents. [facility] Medical History (Updated 12/26/24 @ 16:06 by Maida Belcher MD) Hyperglycemia Anemia Prostate cancer Thrombophlebitis leg superficial Hyperlipidemia Annual physical exam BPH (benign prostatic hyperplasia) Overweight Surgical History (Updated 12/26/24 @ 10:51 by ELOY Fowler) Hx of removal of cyst Hx of surgical procedure (07/23/24) H/O colonoscopy Family History Mother AD (Alzheimer's disease) Hypertension Father Colorectal cancer Prostate cancer Social History Household Members Other:: , bookeeping business, Housing: House Patient Tobacco Use Status: Former Tobacco user ( ) e-Cigarette/Vaping Use: Never Used Current occupational status: employed Cognitive needs: No Hearing needs: No Vision needs: Yes Questionnaire Medicare Wellness Checkup [age] What gender do you identify with?: male During the past 4 weeks, how much have you been bothered by emotional problems such as feeling anxious, depressed, irritable, sad or downhearted, and blue?: slightly During the past 4 weeks, has your physical & emotional health limited your social activities with family, friends, neighbors, or groups?: not at all During the past 4 weeks, how much bodily pain have you generally had?: mild pain During the past 4 weeks, was someone available to help you if you needed & wanted help?: yes, as much as I wanted During the past 4 weeks, what was the hardest physical activity you could do for at least 2 minutes?: heavy Can you get to places out of walking distance without help? (For eg., can you travel alone on buses, taxis or drive your car?): Yes Can you go shopping for groceries or clothes without someone's help?: Yes Can you prepare your own meals?: Yes Can you do your housework without help?: Yes Because of any health problems, do you need the help of another person with your personal care needs such as eating, bathing, dressing or getting around the house?: No Can you handle your own money without help?: Yes During the past 4 weeks, how would you rate your health in general?: good During the past 4 weeks how have things been going for you?: good & bad parts about equal Are you having difficulties driving your car?: no Do you always fasten your seat belt when you are in a car?: yes, usually During past 4 weeks, have you been bothered by the following: never: Sexual problems?, Trouble eating well?, Teeth or denture problems? and Problems using the telephone?, seldom: Tiredness or fatigue? and sometimes: Falling or dizzy when standing up Have you fallen 2 or more times in the past year?: Yes Are you afraid of falling?: Yes Are you a smoker?: no During the past 4 weeks, how many drinks of wine, beer, or other alcoholic beverages did you have?: no alcohol at all Do you exercise for about 20 minutes 3 or more times a week?: yes, some of the time Have you been given information to help with the following?: no: Hazards in your house that might hurt you? and no: Keeping track of your medications? How often do you have trouble taking medicines the way you have been told to take them?: I always take medicine as prescribed How confident are you that you can control & manage most of your health problems?: somewhat confident What is your race?: White Mini Mental State Exam (MMSE) Orientation What is the (year) (season) (date) (day) (month)?: year, season, date, day and month Where are we (state) (county) (town or city) (hospital) (floor)?: state, county, town or city, hospital/clinic and floor Registration Name of 3 unrelated objects clearly and slowly, then ask patient to repeat all 3 of them. (1st repeat determines score. Make sure they can repeat all three): object 1, object 2 and object 3 Attention & Calculation (CHOOSE ONE) Spell WORLD backwards (DLROW): 5 letters Recall Ask patient to repeat the 3 items from question #3.: object 1, object 2 and object 3 Language Show patient a wristwatch & ask what it is. Repeat for pencil.: watch and pencil Ask the patient to repeat the phrase 'No ifs, ands, or buts' after you.: correct Ask the patient to 'take a piece of paper with their right hand' 'fold paper in half' 'place paper on floor': take paper in right hand, fold paper in half and place paper on floor Print the sentence 'CLOSE YOUR EYES' on a piece. If patient actually closes eyes then score.: followed written direction Give patient a blank piece of paper & ask to write a sentence. Score if it contains a noun & verb.: sentence contains subject and verb Score Score: 29 PHQ-9 Over the last 2 weeks, how often have you been bothered by any of the following problems? 1. Little interest or pleasure in doing things: not at all 2. Feeling down, depressed, or hopeless: not at all 3. Trouble falling or staying asleep, or sleeping too much: more than half the days 4. Feeling tired or having little energy: not at all 5. Poor appetite or overeating: not at all 6. Feeling bad about yourself - or that you are a failure or have let yourself or your family down: not at all 7. Trouble concentrating on things, such as reading the newspaper or watching television: not at all 8. Moving or speaking so slowly that other people could have noticed. Or the opposite - being so fidgety or restless that you have been moving around a lot more than usual: not at all 9. Thoughts that you would be better off or of hurting yourself in some way: not at all Total score: 2 Depression Screening Interpretation: Negative Depression Screening Done: Yes Source: Developed by Drs. Mani Rosario, Rosana Bowman, Guru Veras and colleagues, with an educational gucci from [employer]. Review of Systems Const All systems reviewed & are unremarkable except as noted in HPI and below Eyes Reports no additional complaints ENT Reports no additional complaints Card Reports no additional complaints Resp Reports no additional complaints GI Reports no additional complaints Reports no additional complaints Physical Exam Vital Signs: Last Vital Signs Temp 98.0 F 12/26/24 10:42 Pulse 62 12/26/24 10:42 Resp 18 12/26/24 10:42 BP 124/66 12/26/24 10:42 Pulse Ox 97 12/26/24 10:42 Oxygen Delivery Method Room Air 12/26/24 10:42 BMI result Body Mass Index 33.9 Const General: no acute distress HEENT Head: Yes normal to inspection Ears: hearing grossly normal bilaterally Eyes General: appearance normal, both eyes and all related structures Neck Neck: Yes no lymphadenopathy and Yes supple Resp Effort & Inspection: normal respiratory effort Auscultation: clear to auscultation bilaterally Cardio Rhythm: regular rhythm Heart sounds: S1 normal heart sound present and S2 normal heart sound present GI Inspection: Yes normal to inspection Palpation (GI): Soft to palpation Percussion: Yes normal to percussion Auscultation: normal bowel sounds Extrem General: Yes no clubbing, cyanosis or edema Assessment & Plan Assessment & Plan (1) Hyperlipidemia: Code(s): E78.5 - Hyperlipidemia, unspecified Plan: Continue low-cholesterol diet (2) Overweight: Code(s): E66.3 - Overweight Plan: Decrease caloric intake increasing physical activity discussed with the patient (3) H/O colonoscopy: Comment: 2 polyps, last colonoscopy 06/30, 1 polyp tubular adenoma recheck in [address] Love Code(s): Z98.890 - Other specified postprocedural states Plan: Follow-up with GI (4) Prostate cancer: Comment: low grade, f/u [facility] [place] [facility] [place] Code(s): C61 - Malignant neoplasm of prostate Plan: Follow-up with urology (5) Annual physical exam: Code(s): Z00.00 - Encounter for general adult medical examination without abnormal findings Plan: Well-balanced diet regular physical activity weight loss discussed with the patient. (6) Anemia: Comment: mild, chronic ,nl Iron and vit B12, 12/2023 Code(s): D64.9 - Anemia, unspecified Plan: Monitor CBC iron study Orders: Orders Complete Blood Count Auto Diff 1 Year D64.9 - Anemia, unspecified, E78.5 - Hyperlipidemia, unspecified Comprehensive [place]. Panel Fast 1 Year D64.9 - Anemia, unspecified, E78.5 - Hyperlipidemia, unspecified Lipid Panel 1 Year D64.9 - Anemia, unspecified, E78.5 - Hyperlipidemia, unspecified Vitamin B12 and Folate 1 Year D64.9 - Anemia, unspecified, E78.5 - Hyperlipidemia, unspecified UA w Microscopic 1 Year D64.9 - Anemia, unspecified, E78.5 - Hyperlipidemia, unspecified Quality Reporting (2019) Depression/Bipolar (159/160/161/177) PHQ-9: Total score: 2 Coding Level of Care Code Medicare Subsequent (G0439) Diagnoses Hyperlipidemia E78.5 Overweight E66.3 H/O colonoscopy Z98.890 Prostate cancer C61 Annual physical exam Z00.00 Anemia D64.9 CPT Codes Advance Care Planning - Advance Care Planning discussion: On file, no changes ([id number]) Advance Care Planning - Time spent: 1-15 minutes, on File ([id number]) Advance Care Planning Advance Care Planning discussion: On file, no changes Forms completed: Health Care Proxy Time spent: 1-15 minutes, on File
[2024-12-26 10:53] VITALS: BMI 33.9
--- OUTSIDE RECORDS SUMMARY | 2024-12-26 12:19 | XMS_ITS | Encounter Summary ---
Author Organization [employer] [facility] Address [address] [place] [address] Phone Care Team Providers Care Weaving Instructor Name Role Phone Maida Belcher MD Primary Care Provider [phone] Encounter Details Date Type Department Care Team (Late st Contact Info) Description 10/27/2022 Procedure Pass [facility] [address] [place] [address] Social History Tobacco Use Types Packs/Day Years Used Date Smoking Tobacco: Former Cigarettes Q uit: 1989 Smokeless Tobacco: Never Alcohol Use Standard Drinks/Week Comments Not Currently 0 (1 standard drink = 0.6 oz pur e alcohol) Education Answer Date Recorded Are you interested in more education? Not on khadar e 08/06/2022 Are you concerned about learning? Not on file 08/06/2022 No 08/06/2022 No 08/06/2022 Digital Access Answer Date Recorded No 08/30/2022 No 08/30/2022 Reliable internet access at home? Not on file 08/30/2022 Device with a working camera? Not on file Sex and Gender Information Value Date Recorded Sex Assigned at Not on file Legal Sex Male 2:48 PM EDT Gender Identity Not on file Sexual Orientation Not on file documented as of this encounter Plan of Treatment Not on file documented as of this encounter Visit Diagnoses Not on filedocumented in this encounter Care Teams Weaving Instructor Relationship Specialty Start Date End Date Maida Belcher MD [address] [place] [id number] PCP - General Internal Medicine 01/26/22 documented as of this encounter Additional Source Comments The information contained in this document represents components of the legal health record. It is not the complete legal health record.[facility]
--- OUTSIDE RECORDS SUMMARY | 2024-12-26 12:19 | XMS_ITS | Encounter Summary ---
Author Organization [employer] [facility] Address [address] [place] [address] Phone Care Team Providers Care Crack Off Person Name Role Phone Maida Belcher MD Primary Care Provider [phone] Encounter Details Date Type Department Care Team (Late st Contact Info) Description 02/01/2024 Procedure Pass [facility] [address] [place] [address] Social History Tobacco Use Types [...] with a working camera? Not on file Intimate Partner Violence Answer Date R ecorded Are you denied basic needs s uch as food, clothing, or medical care? No 02/01/2024 In the past 12 months have y ou been in a relationship with a person who hurts, threatens, or tries to control you? No 02/01/2024 Are you denied basic needs s uch as food, clothing, or medical care? No 02/01/2024 In the past 12 months have y ou been in a relationship with a person who hurts, threatens, or tries to control you? No 02/01/2024 Sex and Gender Information Value Date Recorded Sex Assigned at Not on file Legal Sex Male 2:48 PM EDT Gender Identity Not on file Sexual Orientation Not on file documented as of this encounter Plan of Treatment Not on file documented as of this encounter Visit Diagnoses Not on filedocumented in this encounter Care Teams Crack Off Person Relationship Specialty Start Date End Date Maida Belcher MD [facility] [place] [id number] PCP - General Internal Medicine 01/26/22 documented as of this encounter Additional Source Comments The information contained in this document represents components of the legal health record. It is not the complete legal health record.[facility]
--- OUTSIDE RECORDS SUMMARY | 2024-12-26 12:19 | XMS_ITS | Clinical Summary ---
Author Organization [employer] [facility] Address [address] [place] [address] Phone Care Team Providers Care Coat Baster Name Role Phone Maida Belcher MD Primary Care Provider [phone] Allergies Active Allergy Reactions Criticality Noted Date Comments Meperidine (Pf) 10/04/2022 Was told not to take again after received in the past Medications olmesartan (BENICAR) 20 mg tablet Take 1 tablet by mouth every morning. 10mg daily 07/27/2022 Active TURMERIC ORAL Take by mouth. Active cholecalciferol (VITAMIN D3) 4,000 unit tablet Take 1,000 Units by mouth daily. Active APPLE CIDER VINEGAR ORAL Take 400 mg by mouth 4 (four) times a day. Active magnesium gluconate (MAGONATE) 500 mg (27 mg elemental) Tab Take 500 mg by mouth daily. Active melatonin 3 mg Tab Take 3 mg by mouth. Active salmon oil/omega-3 fatty acids (SALMON OIL-1000 ORAL) Take by mouth. Active selenium 100 mcg Tab Take 100 mcg by mouth daily. Active zinc sulfate 50 mg zinc (220 mg) Tab Take 220 mg by mouth daily. Active Active Problems Problem Noted Date Diagnosed Date Prostate cancer 12/20/2022 Fatty liver 10/19/2022 Gout 10/19/2022 Hypertensive disorder 10/19/2022 Encounters Date Type Department Care Team Description 12/13/2024 1:18 PM EDT - 12/13/2024 11:59 PM EDT Hospital Encounter [facility] [address] [place] [address] Ze Arita PA-C Discharge Disposition: Home or Self Care 11/22/2024 3:13 PM EDT - 11/22/2024 11:59 PM EDT Hospital Encounter [facility] [address] [place] [address] Ze Arita PA-C Discharge Disposition: Home or Self Care from Last 3 Months Social History Tobacco Use Types Packs/Day Years [...] on file Sexual Orientation Not on file Last Filed Vital Signs Vital Sign Reading Time Taken Comments Blood Pressure 118/57 02/01/2024 9:45 AM EDT Pulse 55 02/01/2024 9:45 AM EDT Temperature 36 C (96.8 F) 02/01/2024 9:27 AM EDT Respiratory Rate 22 02/01/2024 9:45 AM EDT Oxygen Saturation 97% 02/01/2024 9:45 AM EDT Inhaled Oxygen Concentration - - Weight 106.6 kg (235 lb) 02/01/2024 8:17 AM EDT Height 180.3 cm (5' 11 ) 02/01/2024 8:17 AM EDT Body Mass Index 32.78 02/01/2024 8:17 AM EDT Plan of Treatment Health Maintenance Due Date Last Done Comments CREATININE LEVEL 1953 POTASSIUM LEVEL 1953 DEPRESSION SCREENING 1965 HEPATITIS C SCREENING 09/28/1971 PNEUMOCOCCAL VACCINES (50+ years) (1 of 2 - PCV) 1972 ZOSTER VACCINES (1 of 2) 1972 COLOGUARD 1998 COLONOSCOPY 1998 COLORECTAL CANCER SCREENING 1998 FIT TEST 1998 FOBT 1998 SIGMOIDOSCOPY 1998 VIRTUAL COLONOSCOPY 1998 ABDOMINAL AORTIC ANEURYSM (AAA) SCREENING 2018 BLOOD PRESSURE 08/28/2022 02/28/2022 Adult Td,Tdap Booster 09/14/2024 09/14/2014 INFLUENZA VACCINE (#1) 2024 COVID-19 VACCINE (1 - 2023-2 5 season) 2024 SMOKING Hx and SMOKELESS TOBACCO SCREENING 01/31/2025 02/01/2024 RSV VACCINE (1 - 1-dose 75+ series) 2028 LIPID PANEL 12/12/2028 12/13/2023, 05/30/2023 HEPATITIS A VACCINES Aged Out No long er eligible based on patient's age to complete this topic HIB VACCINES Aged Out No longer eligi ble based on patient's age to complete this topic MENINGOCOCCAL VACCINES (ACWY) Aged Out No longer eligible based on patient's age to complete this topic MENINGOCOCCAL VACCINES (B) Aged Out N o longer eligible based on patient's age to complete this topic Medical Devices Not on file Procedures Procedure Name Priority Date/Time Associated Diagnosis Comments URINE CULTURE Routine 12/13/2024 1:19 PM EDT Prostate cancer Urinary frequency PSA DIAGNOSTIC (MONITORING) Routine 11/22/2024 3:13 PM EDT Prostate cancer from Last 3 Months Results * Urine Culture (12/13/2024 1:19 PM EDT) Special Requests None 12/13/2024 1:19 PM EDT [facility] Urine Culture NO GROWTH 48HRS 12/15/2024 10:23 AM EDT [facility] Urine (Urine) 12/13/2024 1:1 9 PM EDT 12/13/2024 1:36 PM EDT Comment:VOIDED Ze Arita PA-C MICROBIOLOGY - GENERAL ORD ERABLES Final Result Performing Organization Address City/[facility]/ZIP Co de Phone Number [address] [address] * (ABNORMAL) PSA diagnostic (monitoring) (11/22/2024 3:13 PM EDT) PSA 5.12(H) 0 - 4.00 ng/mL [facility] Comment: Test Methodology Christine [id number] Patient results determined by assays using different manufacturers or methods may not be comparable. Blood 11/22/2024 3:13 PM EDT 11/22/2024 3:16 PM EDT Ze Arita PA-C LAB BLOOD ORDERABLES Final Result Performing Organization Address City/[facility]/ZIP Co de Phone Number [address] [address] from Last 3 Months Insurance MEDICARE PART A & B TURN8 MEDEX SUPPLEMENT MEDICARE PART A & B TURN8 MEDEX SUPPLEMENT MEDICARE PART A & B Member Subscriber Plan / Payer ( fective 2018-) Name:Jessee Montiel Member ID:[id number] Relation to Subscriber:Self Name:Jessee Montiel Subscriber ID:[id number] Payer ID:[id number] Group ID:Not on file Type:Medicare Address: [facility] [employer] [address] [place] [phone] TURN8 MEDEX SUPPLEMENT MEDICARE PART A & B TURN8 MEDEX SUPPLEMENT MEDICARE PART A & B TURN8 MEDEX SUPPLEMENT MEDICARE PART A & B TURN8 MEDEX SUPPLEMENT MEDICARE PART A & B [place] SUPPLEMENT MEDICARE PART A & B [place] SUPPLEMENT MEDICARE PART A & B TURN8 MEDEX SUPPLEMENT Care Teams Coat Baster Relationship Specialty Start Date End Date Maida Belcher MD [address] [place] [address] PCP - General Internal Medicine 01/26/22 Additional Source Comments The information contained in this document represents components of the legal health record. It is not the complete legal health record.[facility]
== END 2024-12-26 11:47 | disposition home or self-care (01) ==
LOC: HO.HMCC 10:23
PROVIDERS: PCP Internal Medicine; Visit Provider Internal Medicine
DX: Z00.00 Encounter for general adult medical examination without abnormal findings (principal); C61 Malignant neoplasm of prostate; Z68.33 Body mass index [BMI] 33.0-33.9, adult; E66.3 Overweight; E78.5 Hyperlipidemia, unspecified; Z98.890 Other specified postprocedural states; D64.9 Anemia, unspecified